=== PATIENT | male | born 1930 | race Caucasian/White ===

== ENCOUNTER 2016-08-21 19:52 | Emergency (ER) | payer MEDICARE, OTHER ==
--- NOTE | 2016-08-21 20:26 | ERPHSYRPT ---
- History of Present Illness Time Seen by Provider: 08/21/16 20:08 Source: patient, family () Exam Limitations: no limitations Patient Subjective Stated Complaint: Pt sts weakness since July, sts worse today. Sts that he felt good when he got up but then was using walker and passed out while ambulating. Pt sts he was "out". Pt sts increased weakness today. Sts shortness of breath, sts normal for him. Triage Nursing Assessment: Pt alert, oriented, answers questions appropriately. Skin p/w/d, resps non-labored, spo2 95% room air. Pt transferred self with assist x 1 to bed. Unsteady gait noted. Physician History: SINCE LAST MONTH PT HAS HAD SHORTNESS OF AIR AND GENERALIZED WEAKNESS, WORSE TODAY FOR THE PAST 5 HOURS; DENIES CHEST PAIN, ABDOMINAL PAIN, NAUSEA, VOMITING , FEVER; ADMITS TO A NON-PRODUCTIVE COUGH TODAY. Allergies/Adverse Reactions: codeine Allergy (Mild, Verified 08/21/16 20:15) Latex, Natural Rubber Allergy (Verified 08/21/16 20:15) Home Medications: Hydralazine HCl 50 mg PO BID 01/01/13 [History] Losartan Potassium 50 mg [Cozaar 50 MG] 25 mg PO BID 01/01/13 [History] Metoprolol Tartrate 50 mg [Lopressor 50 MG] 25 mg PO BID 01/01/13 [History ] PANTOPRAZOLE 40 mg Tablet [Protonix 40MG Tablet] 40 mg PO BID 01/01/13 [ History] Potassium Chloride 20 Meq Tab [Potassium Chloride 20 MEQ TABLET] 2 tablet PO DAILY 01/01/13 [History] Sertraline HCl 100 mg [Zoloft 100 MG] 100 mg PO HS 01/01/13 [History] Simvastatin 40 mg [Zocor 40 mg] 40 mg PO DINNER 01/01/13 [History] Furosemide [Lasix] 80 mg PO DAILY 12/30/13 [History] Levothyroxine Sodium 100 Mcg [Synthroid 100 Mcg] 175 mcg PO DAILY 06/07/15 [History] Warfarin Sodium 4 mg PO DAILY 08/21/16 [History] Hx Tetanus, Diphtheria Vaccination/Date Given: Yes (within 10 yrs) Hx Influenza Vaccination/Date Given: Yes Hx Pneumococcal Vaccination/Date Given: Yes Immunizations Up to Date: Yes - Review of Systems Constitutional: Weakness (GENERALIZED) Ears, Nose, & Throat: Other (H.O.H.) Respiratory: Cough, Dyspnea Cardiac: No Chest Pain Abdominal/Gastrointestinal: No Abdominal Pain, No Vomiting, No Diarrhea Genitourinary Symptoms: Other (CKD(PER )) Musculoskeletal: Other (BILATERAL LOWER LEG EDEMA) Neurological: No Headache All Other Systems: Reviewed and Negative - Past Medical History Pertinent Past Medical History: Yes Neurological History: No Pertinent History ENT History: No Pertinent History Cardiac History: Congenital Heart Disease, Congestive Heart Failure, Coronary Artery Disease, High Cholesterol, Hypertension, Myocardial Infarction ([place]) Respiratory History: COPD Endocrine Medical History: Hypothyroidism Musculoskeletal History: No Pertinent History GI Medical History: No Pertinent History History: No Pertinent History Psycho-Social History: No Pertinent History Male Reproductive Disorders: Prostate Problems Other Medical History: ulcers on lower left leg, which had been treated at [facility], but now dr esteban is taking care of ulcers. .Pt also has had radiation tx's for skin cancer on end of nose and ear having biopsy 04/11/13 - Past Surgical History Past Surgical History: Yes Neuro Surgical History: No Pertinent History Cardiac: CABG, Cardiac Catheterization, Valve Replacement, Other Respiratory: No Pertinent History Gastrointestinal: Cholecystectomy Genitourinary: No Pertinent History Musculoskeletal: No Pertinent History Male Surgical History: No Pertinent History Other Surgical History: ARTIFICIAL HEART VALVE AND A FILTER IN THE AORTA; partial thyroidectomy (left side) - Social History Smoking Status: Never smoker Exposure to second hand smoke: No Alcohol Use: None Drug Use: none Patient Lives Alone: No Significant Family History: no pertinent family hx - Nursing Vital Signs Nursing Vital Signs: Initial Vital Signs Temperature 98.1 F Temperature Source Oral Pulse Rate 84 Respiratory Rate 18 Blood Pressure [] 174/76 - Physical Exam General Appearance: alert Eye Exam: PERRL/EOMI Ears, Nose, Throat Exam: TMs normal, dry mucous membranes, pharyngeal erythema Neck Exam: normal inspection Respiratory Exam: lungs clear, airway intact Cardiovascular Exam: irregular, other (PROSTHETIC HEART VALVE SOUNDS.) Gastrointestinal/Abdomen Exam: soft, normal bowel sounds Back Exam: normal range of motion Extremity Exam: other (+2 EDEMA OF LEGS) Neurologic Exam: alert, cooperative Skin Exam: other (STASIS DERMATITIS OF BOTH LEGS) SpO2 Interpretation: normal SpO2: 95 Oxygen Delivery: Room Air - Course Nursing assessment & vital signs reviewed: Yes EKG Interpreted by Me: RATE (80), A-fib, NORMAL AXIS, Non-specific ST Changes - Radiology Exams Chest X-ray Interpretation: Interpreted by me, No Pneumonia Ordered Tests: Active Orders 24 hr Category Date Time Status Clean Catch Urine Specimen STAT Care 08/21/16 20:19 Active EKG-ER Only STAT Care 08/21/16 20:19 Active IV Insertion STAT Care 08/21/16 20:19 Active CHEST 1 VIEW (PORTABLE) Stat Exams 08/21/16 20:19 Taken AMYLASE Stat Lab 08/21/16 20:34 Completed CBC W DIFF Stat Lab 08/21/16 20:34 Completed CMP Stat Lab 08/21/16 20:34 Completed CULTURE, THROAT Stat Lab 08/21/16 20:34 Received LIPASE Stat Lab 08/21/16 20:34 Completed [place] Screen Stat Lab 08/21/16 20:34 Completed NT PRO BNP Stat Lab 08/21/16 20:34 Completed STREP SCREEN-BETA A Stat Lab 08/21/16 20:34 Completed T4 Stat Lab 08/21/16 20:34 Completed TROPONIN Stat Lab 08/21/16 20:34 Completed TSH [TSH, 3RD Generation] Stat Lab 08/21/16 20:34 Completed UA W/ MICROSCOPIC Stat Lab 08/21/16 20:19 Completed Medication Summary Generic Name Dose Route Start Last Admin Trade Name Freq PRN Reason Stop Dose Admin Sodium Chloride 1,000 mls @ 100 mls/hr 08/21/16 20:30 08/21/16 20:37 Sodium Chloride 0.9% 1000 Ml IV 09/20/16 20:29 100 mls/hr .Q10H JIMMIE Administration Lab/Rad Data: Laboratory Result Diagrams 08/21/16 20:34 08/21/16 20:34 Laboratory Results 08/21/16 08/21/16 08/21/16 Range/Units 20:34 20:34 20:34 WBC (4.0-10.5) K/mm3 RBC (4.1-5.6) M/mm3 Hgb (12.5-18.0) gm/dl Hct (42-50) % MCV (78-100) fl MCH (26-32) pg MCHC (32-36) g/dl RDW (11.5-14.0) % Plt Count (150-450) K/mm3 MPV (6-9.5) fl Gran % (36.0-66.0) % Lymphocytes % (24.0-44.0) % Monocytes % (0.0-12.0) % Eosinophils % (0.00-5.0) % Basophils % (0.0-0.4) % Basophils # (0-0.4) Sodium (136-145) mEq/L Potassium (3.5-5.1) mEq/L Chloride (98-107) mEq/L Carbon Dioxide (21-32) mEq/L Anion Gap (5-15) MEQ/L BUN (9-20) mg/dL Creatinine (0.55-1.30) mg/dl Estimated GFR ML/MIN Glucose (70-110) MG/DL Calcium (8.5-10.1) mg/dL Total Bilirubin (0.2-1.0) mg/dL AST (15-37) U/L ALT (12-78) U/L Alkaline Phosphatase (46-116) U/L Troponin I (0.000-0.056) ng/ml NT-Pro-B Natriuret Pep (0-450) pg/ml Serum Total Protein (6.4-8.2) gm/dL Albumin (3.4-5.0) g/dL Amylase (25-115) U/L Lipase (73-393) U/L Thyroxine (T4) 7.5 (4.7-13.3) UG/DL TSH 3rd Generation 0.088 L (0.358-3.740) mIU/L Ur Collection Type Urine Color (YELLOW) Urine Appearance (CLEAR) Urine pH (5-6) Ur Specific [place] (1.005-1.025) Urine Protein (Negative) Urine Glucose (UA) (NEGATIVE) mg/dL Urine Ketones (NEGATIVE) Urine Nitrite (NEGATIVE) Urine Bilirubin (NEGATIVE) Urine Urobilinogen (0-1) mg/dL Urine WBC (Auto) (NEGATIVE) Urine RBC (Auto) (0-5) Leopoldo/ul Urine Microscopic RBC (0-2) /HPF Urine Bacteria (NEGATIVE) /HPF Monoscreen POSITIVE (Negative) Influenza Type A Ag NEGATIVE (NEGATIVE) Influenza Type B Ag NEGATIVE (NEGATIVE) RSV (PCR) NEGATIVE (Negative) Streptococcus Screen (Negative) Specimen Received 08/21/16 08/21/16 08/21/16 Range/Units 20:34 20:34 20:34 WBC (4.0-10.5) K/mm3 RBC (4.1-5.6) M/mm3 Hgb (12.5-18.0) gm/dl Hct (42-50) % MCV (78-100) fl MCH (26-32) pg MCHC (32-36) g/dl RDW (11.5-14.0) % Plt Count (150-450) K/mm3 MPV (6-9.5) fl Gran % (36.0-66.0) % Lymphocytes % (24.0-44.0) % Monocytes % (0.0-12.0) % Eosinophils % (0.00-5.0) % Basophils % (0.0-0.4) % Basophils # (0-0.4) Sodium 142 (136-145) mEq/L Potassium 4.3 (3.5-5.1) mEq/L Chloride 107 (98-107) mEq/L Carbon Dioxide 23.6 (21-32) mEq/L Anion Gap 15.8 H (5-15) MEQ/L BUN 32 H (9-20) mg/dL Creatinine 1.73 H (0.55-1.30) mg/dl Estimated GFR 40 ML/MIN Glucose 140 H (70-110) MG/DL Calcium 9.0 (8.5-10.1) mg/dL Total Bilirubin 1.1 H (0.2-1.0) mg/dL AST 26 (15-37) U/L ALT 21 (12-78) U/L Alkaline Phosphatase 73 (46-116) U/L Troponin I 0.019 (0.000-0.056) ng/ml NT-Pro-B Natriuret Pep 4687 H (0-450) pg/ml Serum Total Protein 7.4 (6.4-8.2) gm/dL Albumin 3.9 (3.4-5.0) g/dL Amylase 63 (25-115) U/L Lipase 132 (73-393) U/L Thyroxine (T4) (4.7-13.3) UG/DL TSH 3rd Generation (0.358-3.740) mIU/L Ur Collection Type Urine Color (YELLOW) Urine Appearance (CLEAR) Urine pH (5-6) Ur Specific [place] (1.005-1.025) Urine Protein (Negative) Urine Glucose (UA) (NEGATIVE) mg/dL Urine Ketones (NEGATIVE) Urine Nitrite (NEGATIVE) Urine Bilirubin (NEGATIVE) Urine Urobilinogen (0-1) mg/dL Urine WBC (Auto) (NEGATIVE) Urine RBC (Auto) (0-5) Leopoldo/ul Urine Microscopic RBC (0-2) /HPF Urine Bacteria (NEGATIVE) /HPF Monoscreen (Negative) Influenza Type A Ag (NEGATIVE) Influenza Type B Ag (NEGATIVE) RSV (PCR) (Negative) Streptococcus Screen NEGATIVE (Negative) Specimen Received 08/21/16 08/21/16 Range/Units 20:34 20:19 WBC 9.7 (4.0-10.5) K/mm3 RBC 3.99 L (4.1-5.6) M/mm3 Hgb 12.1 L (12.5-18.0) gm/dl Hct 37.1 L (42-50) % MCV 93.0 (78-100) fl MCH 30.3 (26-32) pg MCHC 32.6 (32-36) g/dl RDW 14.7 H (11.5-14.0) % Plt Count 134 L (150-450) K/mm3 MPV 10.5 H (6-9.5) fl Gran % 81.8 H (36.0-66.0) % Lymphocytes % 7.3 L (24.0-44.0) % Monocytes % 9.9 (0.0-12.0) % Eosinophils % 0.7 (0.00-5.0) % Basophils % 0.3 (0.0-0.4) % Basophils # 0.03 (0-0.4) Sodium (136-145) mEq/L Potassium (3.5-5.1) mEq/L Chloride (98-107) mEq/L Carbon Dioxide (21-32) mEq/L Anion Gap (5-15) MEQ/L BUN (9-20) mg/dL Creatinine (0.55-1.30) mg/dl Estimated GFR ML/MIN Glucose (70-110) MG/DL Calcium (8.5-10.1) mg/dL Total Bilirubin (0.2-1.0) mg/dL AST (15-37) U/L ALT (12-78) U/L Alkaline Phosphatase (46-116) U/L Troponin I (0.000-0.056) ng/ml NT-Pro-B Natriuret Pep (0-450) pg/ml Serum Total Protein (6.4-8.2) gm/dL Albumin (3.4-5.0) g/dL Amylase (25-115) U/L Lipase (73-393) U/L Thyroxine (T4) (4.7-13.3) UG/DL TSH 3rd Generation (0.358-3.740) mIU/L Ur Collection Type CLEAN CATCH Urine Color YELLOW (YELLOW) Urine Appearance CLEAR (CLEAR) Urine pH 7.5 (5-6) Ur Specific [place] 1.015 (1.005-1.025) Urine Protein 100 (Negative) Urine Glucose (UA) NEGATIVE (NEGATIVE) mg/dL Urine Ketones NEGATIVE (NEGATIVE) Urine Nitrite NEGATIVE (NEGATIVE) Urine Bilirubin NEGATIVE (NEGATIVE) Urine Urobilinogen 0.2 (0-1) mg/dL Urine WBC (Auto) NEGATIVE (NEGATIVE) Urine RBC (Auto) TRACE-LYSED (0-5) Leopoldo/ul Urine Microscopic RBC 0-2 (0-2) /HPF Urine Bacteria RARE (NEGATIVE) /HPF Monoscreen (Negative) Influenza Type A Ag (NEGATIVE) Influenza Type B Ag (NEGATIVE) RSV (PCR) (Negative) Streptococcus Screen (Negative) Specimen Received [id number] - Departure Time of Disposition: 23:08 Departure Disposition: Home Clinical Impression: INFECTIOUS MONONUCLEOSIS, A.FIB, COPD, HYPOTHYROIDISM, CAD, HTN, PHARYNGITIS, CKD Condition: Fair Critical Care Time: No Referrals: JCARLOS SAEED [Primary Care Provider] - Instructions: Mononucleosis Additional Instructions: FOLLOW UP WITH PRIVATE DOCTOR TOMORROW. Prescriptions: Azithromycin 250 mg [Zithromax 250 MG TABLET] 250 mg PO ZPACK #6 tablet
[2016-08-21] MEDS ORDERED: Sodium Chloride 0.9% 1000 ML 1,000 ML IV SCH (20:30)
[2016-08-21] MEDS ORDERED: Sodium Chloride 0.9% 1000 ML 1,000 ML ONE (20:36)
[2016-08-21 20:38] LABS: BASOPHIL % 0.3 % (0.0-0.4); Eosinophil % 0.7 % (0.00-5.0); Granulocytes % 81.8 % (36.0-66.0); Lymphocytes % 7.3 % (24.0-44.0); Mean Corpuscular Hemoglobin 30.3 pg (26-32); Mean Platelet Volume 10.5 fl (6-9.5); Monocytes % 9.9 % (0.0-12.0); Platelet Count 134 K/mm3 (150-450); Red Blood Count 3.99 M/mm3 (4.1-5.6); Red Cell Distribution Width 14.7 % (11.5-14.0); White Blood Count 9.7 K/mm3 (4.0-10.5)
[2016-08-21 21:23] LABS: ALBUMIN 3.9 g/dL (3.4-5.0); ANION GAP 15.8 MEQ/L (5-15); BILIRUBIN,TOTAL 1.1 mg/dL (0.2-1.0); Carbon Dioxide 23.6 mEq/L (21-32); Potassium 4.3 mEq/L (3.5-5.1); TROPONIN 0.019 ng/ml (0.000-0.056); Total Protein 7.4 gm/dL (6.4-8.2)
[2016-08-21 22:51] LABS: Collection Type CLEAN CATCH; Ph 7.5 (5-6)
[2016-08-21 22:52] LABS: Bacteria RARE /HPF (NEGATIVE); COMPLETE URINE MICROSCOPIC? YES
[2016-08-21] MEDS ORDERED: Zithromax 250 MG TABLET PO ONE (23:08)
[2016-08-21] MEDS ORDERED: Zithromax 250 MG TABLET ONE (23:18)
[2016-08-21 23:19] LABS: INR 2.14 (0.8-3.0); PROTIME 23.4 SECONDS (8.83-12.87)
[2016-08-21 23:21] LABS: PTT 33.5 SECONDS (24.1-36.1)
[2016-08-22 00:51] VITALS: BP 160/76; PULSE 73; O2SAT 100
--- NOTE | 2016-08-22 08:54 | XRAY ---
Indication: Short of breath. Weakness. Comparison: March 28, 2016. Portable chest again demonstrates left hemidiaphragm elevation with adjacent infiltrate/atelectasis and subtle right base atelectasis/scarring. Upper lungs clear. Heart is borderline enlarged for AP portable technique and again demonstrates previous CABG surgery. Bony thorax intact again with osteopenia and degenerative changes. Impression: Stable nonacute chest with chronic features.
== END 2016-08-22 00:51 | disposition home or self-care (01) ==
LOC: ED 19:52
DX: B27.90 Infectious mononucleosis, unspecified without complication (principal); I48.91 Unspecified atrial fibrillation; J44.9 Chronic obstructive pulmonary disease, unspecified; E03.9 Hypothyroidism, unspecified; I25.10 Atherosclerotic heart disease of native coronary artery without angina pectoris; I10 Essential (primary) hypertension; J02.9 Acute pharyngitis, unspecified; N18.9 Chronic kidney disease, unspecified; R60.9 Edema, unspecified; R06.00 Dyspnea, unspecified; Z79.899 Other long term (current) drug therapy; Z79.01 Long term (current) use of anticoagulants
CPT/HCPCS: 36000; 36415; 71010; 80053; 81000; 82150; 83690; 83880; 84436; 84443; 84484; 85025; 85610; 85730; 86308; 87070; 87430; 87631; 93005; 96360; 96361; 99284; A9270-GY

== ENCOUNTER 2017-02-13 12:09 | Observation (INO) | payer MEDICARE, OTHER ==
[2017-02-13] MEDS ORDERED: Lasix 40 MG/4 ML IV ONE (12:58)
--- NOTE | 2017-02-13 12:58 | ERPHSYRPT ---
- History of Present Illness Time Seen by Provider: 02/13/17 12:50 Source: patient Exam Limitations: no limitations Patient Subjective Stated Complaint: TP to er c/o increasing difficulty breathing x 3 days with mild chest tightness over midchest. pt states he has been coughing up thick clear sputum Triage Nursing Assessment: pt c/o sob, arrives with nonlabored breathing reg rate and rhy. pt BBS CTA other than rll with exp wheezing noted. pt reports constant chest tightness to midsternum worse with inspiration. pt pale, w/d resp easy a@ox3. PT WAS TAKEN OFF LASIX AND K LAST WEEK PER MD Physician History: The patient is an 86-year-old male complaining of worsening shortness of breath and cough for 2-3 days. He is also week. He is coughing up thick clear sputum. He states his chest is tight. He had been taking Lasix but was taken off of the Lasix about a month ago. He denies fever or chills. His past medical history is significant for CHF, CAD, CABG, AVR, chronic stasis dermatitis, high cholesterol, hypertension, and atrial fibrillation. Timing/Duration: day(s) (3), gradual onset, worse Activities at Onset: none Severity of Dyspnea-Max: moderate Severity of Dyspnea-Current: moderate Possible Cause: occasional episodes Modifying Factors: Improves With: exertion, lying down (pt must sleep in a recliner.) Associated Symptoms: edema, wheezing, ankle swelling, productive cough Allergies/Adverse Reactions: codeine Allergy (Mild, Verified 08/21/16 20:15) Latex, Natural Rubber Allergy (Verified 08/21/16 20:15) Home Medications: Hydralazine HCl 50 mg PO BID 01/01/13 [History] Losartan Potassium 50 mg [Cozaar 50 MG] 25 mg PO BID 01/01/13 [History] Metoprolol Tartrate 50 mg [Lopressor 50 MG] 25 mg PO BID 01/01/13 [History ] PANTOPRAZOLE 40 mg Tablet [Protonix 40MG Tablet] 40 mg PO BID 01/01/13 [ History] Sertraline HCl 100 mg [Zoloft 100 MG] 100 mg PO HS 01/01/13 [History] Simvastatin 40 mg [Zocor 40 mg] 20 mg PO DINNER 01/01/13 [History] Levothyroxine Sodium 100 Mcg [Synthroid 100 Mcg] 175 mcg PO DAILY 06/07/15 [History] Warfarin Sodium 4 mg PO DAILY 08/21/16 [History] Warfarin Sodium 5 mg [Coumadin 5 MG] 5 mg PO DAILY 02/13/17 [History] Hx Tetanus, Diphtheria Vaccination/Date Given: No Hx Influenza Vaccination/Date Given: Yes Hx Pneumococcal Vaccination/Date Given: No - Review of Systems Constitutional: Weakness Eyes: No Symptoms Ears, Nose, & Throat: No Symptoms Respiratory: Cough, Dyspnea Cardiac: Chest Pain (tightness) Abdominal/Gastrointestinal: No Abdominal Pain, No Nausea, No Vomiting, No Diarrhea Genitourinary Symptoms: No Dysuria Musculoskeletal: No Back Pain, No Neck Pain Skin: No Rash Neurological: No Dizziness, No Focal Weakness, No Sensory Changes Psychological: No Symptoms Endocrine: No Symptoms Hematologic/Lymphatic: No Symptoms Immunological/Allergic: No Symptoms All Other Systems: Reviewed and Negative - Past Medical History Pertinent Past Medical History: Yes Neurological History: No Pertinent History ENT History: No Pertinent History Cardiac History: Congenital Heart Disease, Congestive Heart Failure, Coronary Artery Disease, High Cholesterol, Hypertension, Myocardial Infarction ([place]) Respiratory History: COPD Endocrine Medical History: Hypothyroidism Musculoskeletal History: No Pertinent History GI Medical History: No Pertinent History History: No Pertinent History Psycho-Social History: No Pertinent History Male Reproductive Disorders: Prostate Problems Other Medical History: ulcers on lower left leg, which had been treated [facility], but now dr esteban is taking care of ulcers. .Pt also has had radiation tx's for skin cancer on end of nose and ear having biopsy 04/11/13 - Past Surgical History Past Surgical History: Yes Neuro Surgical History: No Pertinent History Cardiac: CABG, Cardiac Catheterization, Valve Replacement, Other Respiratory: No Pertinent History Gastrointestinal: Cholecystectomy Genitourinary: No Pertinent History Musculoskeletal: No Pertinent History Male Surgical History: No Pertinent History Other Surgical History: ARTIFICIAL HEART VALVE AND A FILTER IN THE AORTA; partial thyroidectomy (left side) - Social History Smoking Status: Never smoker Exposure to second hand smoke: No Alcohol Use: None Drug Use: none Patient Lives Alone: No Significant Family History: no pertinent family hx - Nursing Vital Signs Nursing Vital Signs: Initial Vital Signs Temperature 98.7 F 02/13/17 12:10 Pulse Rate 100 H 10/03/17 12:10 Respiratory Rate 18 02/13/17 12:10 O2 Sat by Pulse Oximetry 95 02/13/17 12:10 Pain Scale Pain Intensity 0 - Physical Exam General Appearance: mild distress Eye Exam: PERRL/EOMI Ears, Nose, Throat Exam: hearing grossly normal Neck Exam: normal inspection, supple Respiratory Exam: diminished breath sounds Cardiovascular/Chest Exam: murmur, irregular Abdominal/Gastrointestinal Exam: soft, No tenderness, No distention, No mass Rectal Exam: not done Extremity Exam: non-tender, normal range of motion, normal inspection, no calf tenderness, no pedal edema Neurologic Exam: alert, oriented x 3, cooperative, concession cashier II-XII nml as tested, sensation nml, No motor deficits Skin Exam: normal color, warm, No dry SpO2 Interpretation: normal SpO2: 95 Oxygen Delivery: Room Air - Course EKG Interpreted by Me: RATE (86), A-fib, NORMAL AXIS, NORMAL QRS, NORMAL ST-T, Other (No change compared to EKG 08/21/16.) - Radiology Exams Chest X-ray Interpretation: Teleradiologist Report, Other (cardiomegaly with pulmonary edema c/w CHF per Dr Hargrove.) Ordered Tests: Active Orders 24 hr Category Date Time Status Gear Changer STAT Care 02/13/17 12:59 Active EKG-ER Only STAT Care 02/13/17 12:58 Active IV Insertion STAT Care 02/13/17 12:58 Active Oxygen-ED Only NASAL CANNULA 2 lpm Care 02/13/17 12:58 Active CHEST 2 VIEWS (PA AND LAT) Stat Exams 02/13/17 12:59 Completed BLOOD CULTURE Stat Lab 02/13/17 13:50 Received CBC W DIFF Stat Lab 02/13/17 12:35 Completed CMP Stat Lab 02/13/17 12:35 Completed Lactic Acid Stat Lab 02/13/17 13:55 Completed NT PRO BNP Stat Lab 02/13/17 12:35 Completed PROTIME WITH INR Stat Lab 02/13/17 12:35 Completed Medication Summary Discontinued Medications Generic Name Dose Route Start Last Admin Trade Name Freq PRN Reason Stop Dose Admin Furosemide 40 mg 02/13/17 12:58 02/13/17 13:14 Lasix 40 Mg/4 Ml IV 02/13/17 12:59 40 mg STAT ONE Administration Furosemide Confirm 02/13/17 13:03 Lasix 40 Mg/4 Ml Administered 02/13/17 13:04 Dose 40 mg .ROUTE .STK-MED ONE Lab/Rad Data: Laboratory Result Diagrams 02/13/17 12:35 02/13/17 12:35 Laboratory Results 02/13/17 02/13/17 02/13/17 Range/Units 13:55 12:35 12:35 WBC (4.0-10.5) K/mm3 RBC (4.1-5.6) M/mm3 Hgb (12.5-18.0) gm/dl Hct (42-50) % MCV (78-100) fl MCH (26-32) pg MCHC (32-36) g/dl RDW (11.5-14.0) % Plt Count (150-450) K/mm3 MPV (6-9.5) fl Gran % (36.0-66.0) % Lymphocytes % (24.0-44.0) % Monocytes % (0.0-12.0) % Eosinophils % (0.00-5.0) % Basophils % (0.0-0.4) % Basophils # (0-0.4) INR 3.21 H (0.8-3.0) Sodium 141 (136-145) mEq/L Potassium 3.5 (3.5-5.1) mEq/L Chloride 107 (98-107) mEq/L Carbon Dioxide 22.8 (21-32) mEq/L Anion Gap 14.4 (5-15) MEQ/L BUN 29 H (9-20) mg/dL Creatinine 1.59 H (0.55-1.30) mg/dl Estimated GFR 44 ML/MIN Glucose 95 (70-110) MG/DL Lactic Acid 1.2 (0.4-2.0) Calcium 8.9 (8.5-10.1) mg/dL Total Bilirubin 1.40 H (0.2-1.0) mg/dL AST 19 (15-37) U/L ALT 20 (12-78) U/L Alkaline Phosphatase 60 (46-116) U/L NT-Pro-B Natriuret Pep 6684 H (0-450) pg/ml Serum Total Protein 6.8 (6.4-8.2) gm/dL Albumin 3.4 (3.4-5.0) g/dL 02/13/17 Range/Units 12:35 WBC 8.9 (4.0-10.5) K/mm3 RBC 3.56 L (4.1-5.6) M/mm3 Hgb 11.0 L (12.5-18.0) gm/dl Hct 33.1 L (42-50) % MCV 93.0 (78-100) fl MCH 30.8 (26-32) pg MCHC 33.2 (32-36) g/dl RDW 14.0 (11.5-14.0) % Plt Count 133 L (150-450) K/mm3 MPV 11.2 H (6-9.5) fl Gran % 77.3 H (36.0-66.0) % Lymphocytes % 7.3 L (24.0-44.0) % Monocytes % 11.4 (0.0-12.0) % Eosinophils % 3.6 (0.00-5.0) % Basophils % 0.4 (0.0-0.4) % Basophils # 0.04 (0-0.4) INR (0.8-3.0) Sodium (136-145) mEq/L Potassium (3.5-5.1) mEq/L Chloride (98-107) mEq/L Carbon Dioxide (21-32) mEq/L Anion Gap (5-15) MEQ/L BUN (9-20) mg/dL Creatinine (0.55-1.30) mg/dl Estimated GFR ML/MIN Glucose (70-110) MG/DL Lactic Acid (0.4-2.0) Calcium (8.5-10.1) mg/dL Total Bilirubin (0.2-1.0) mg/dL AST (15-37) U/L ALT (12-78) U/L Alkaline Phosphatase (46-116) U/L NT-Pro-B Natriuret Pep (0-450) pg/ml Serum Total Protein (6.4-8.2) gm/dL Albumin (3.4-5.0) g/dL - Progress Progress: improved Air Movement: good Blood Culture(s) Obtained: No Antibiotics given: No Discussed with : Lorenzo Will see patient in: hospital (observation) Counseled pt/family regarding: lab results, diagnosis, rad results - Departure Time of Disposition: 14:39 Departure Disposition: Observation (Per Dr Lorenzo for Desire Saeed) Clinical Impression: CHF (congestive heart failure) Condition: Stable Critical Care Time: No Referrals: JCARLOS SAEED [Primary Care Provider] - Instructions: Heart Failure Additional Instructions: You have an exacerbation of congestive heart failure that has led to a buildup of fluid in her lungs, causing shortness of breath. You were given Lasix 40 mg by IV in the ER. You are being admitted under Dr. Lorenzo.
[2017-02-13] MEDS ORDERED: Lasix 40 MG/4 ML ONE (13:03)
[2017-02-13 13:28] LABS: BASOPHIL % 0.4 % (0.0-0.4); Eosinophil % 3.6 % (0.00-5.0); Granulocytes % 77.3 % (36.0-66.0); Lymphocytes % 7.3 % (24.0-44.0); Mean Platelet Volume 11.2 fl (6-9.5); Monocytes % 11.4 % (0.0-12.0); Platelet Count 133 K/mm3 (150-450); Red Blood Count 3.56 M/mm3 (4.1-5.6); White Blood Count 8.9 K/mm3 (4.0-10.5)
[2017-02-13 13:32] LABS: Mean Corpuscular Hemoglobin 30.8 pg (26-32)
[2017-02-13 13:44] LABS: INR 3.21 (0.8-3.0); PROTIME 36.1 SECONDS (8.83-12.87)
--- NOTE | 2017-02-13 13:45 | XRAY ---
Indication: Short of breath. Comparison: August 21, 2016. AP/lateral chest demonstrates worsening cardiomegaly with now pulmonary edema and small bibasilar effusions favoring cardiac decompensation. Again previous cardiac valvular replacement surgery, osteopenia, and bony degenerative changes. Impression: New findings favoring CHF. Superimposed pneumonia not completely excluded.
[2017-02-13 14:01] LABS: ALBUMIN 3.4 g/dL (3.4-5.0); ANION GAP 14.4 MEQ/L (5-15); BILIRUBIN,TOTAL 1.4 mg/dL (0.2-1.0); Carbon Dioxide 22.8 mEq/L (21-32); Potassium 3.5 mEq/L (3.5-5.1); Total Protein 6.8 gm/dL (6.4-8.2)
[2017-02-13] MEDS: Lasix 40 MG/4 ML IV SCH (16:46)
[2017-02-13] MEDS ORDERED: TYLENOL 325 MG PO PRN (17:25)
[2017-02-13] MEDS ORDERED: Sodium Chloride 0.9% 10 ML FLUSH Syringe IV PRN (17:42)
[2017-02-13] MEDS: Apresoline 25 MG TABLET PO SCH ×2 (19:37→22:05)
[2017-02-13] MEDS: Cozaar 50 MG PO SCH (21:48)
[2017-02-13] MEDS: ZOCOR 20MG PO SCH (21:50)
[2017-02-13] MEDS: Sodium Chloride 0.9% 10 ML FLUSH Syringe IV SCH (21:50)
[2017-02-13] MEDS: ZOLOFT 50 MG TABLET PO SCH (21:51)
[2017-02-13] MEDS ORDERED: Lopressor 50 MG PO SCH (22:00)
[2017-02-14 05:53] LABS: Mean Cell Volume 92.5 fl (78-100); Platelet Count 141 K/mm3 (150-450); Red Blood Count 3.59 M/mm3 (4.1-5.6); White Blood Count 9.4 K/mm3 (4.0-10.5)
[2017-02-14 05:57] LABS: INR 3.09 (0.8-3.0); PROTIME 34.8 SECONDS (8.83-12.87)
[2017-02-14] MEDS: Sodium Chloride 0.9% 10 ML FLUSH Syringe IV SCH ×3 (06:00→21:53)
[2017-02-14 06:19] LABS: ANION GAP 13.1 MEQ/L (5-15); Carbon Dioxide 25.5 mEq/L (21-32); Potassium 3.3 mEq/L (3.5-5.1)
--- NOTE | 2017-02-14 07:40 | HP ---
HISTORY OF PRESENT ILLNESS: This is an 86 year-old patient of Dr. Chino Beltran who presented to the emergency department with increasing trouble with breathing. He states his breathing got worse the past few days that has been going on for some time. He recently had been off of his Lasix and potassium due to chronic kidney disease. He had good urine output with the Lasix in the emergency room and reports that he soaked the bed x2 and breathing is better now than when he first came in. He reports that he had a catheter in place now. He also reports a history of passing out yesterday. He did not fall except against his and did not hit his head. He reports this happened and that his tafe teacher, Dr. Babcock, is aware of this. REVIEW OF SYSTEMS: He denies any fever. He has a nonproductive cough. No pain. He has had some lower extremity edema. No rashes. He denies any chest pain. He just states that it was hard to breathe. He reports some leg ulcers that have gotten better recently. PAST MEDICAL HISTORY: Chronic kidney disease stage IV, history of a valve replacement, congestive heart failure, obstructive sleep apnea for which he wears a CPAP at night for. 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 MEDICATIONS: ALLERGIES: SOCIAL HISTORY: He is and denies any tobacco use alcohol use. FAMILY HISTORY: His mother is and had a stroke. His father is and had chronic obstructive pulmonary disease. PHYSICAL EXAMINATION: VITAL SIGNS: Temperature current 98.7F, temperature max 98.7F, heart rate 84 to 100 currently 84, respiratory rate 18 to 20 currently 18, blood pressure currently 177 over 78. Oxygen saturation 98% on 2 liters. GENERAL: The patient is lying in bed eating his breakfast, a pleasant talkative man with his at the bedside in no acute distress. CVS: He has a regular rate and rhythm. No murmurs, gallops or rubs are appreciated. CHEST: Clear to auscultation when auscultated anteriorly. ABDOMEN: Soft, nontender, nondistended with normal bowel sounds. EXTREMITIES: No clubbing, cyanosis or edema. SKIN: Warm, dry and intact. LABORATORY DATA AND TESTS: On admission hemoglobin 11.0, PLT count 133,000. International normalized ratio 3.21. Creatinine 1.59, bilirubin 1.4. BNP 6,684. Influenza A/B and respiratory syncytial virus were negative. Chest x-ray was read as new findings favoring congestive heart failure superimposed pneumonia not completely excluded. His white blood cell count was normal. ASSESSMENT AND PLAN: 1) CONGESTIVE HEART FAILURE EXACERBATION: The patient was started on Lasix 40 mg IV and had good diuresis with this, will plan to recheck BMP in the morning, continue with daily weights, accurate ins and outs. 2) CHRONIC KIDNEY DISEASE STAGE IV: Continue with close monitoring. 3) HISTORY OF SYNCOPE: He is currently on telemetry. Will try to obtain records from his tafe teacher, Dr. Babcock, and his primary care doctor tomorrow may know if this has already been worked up in the past. 4) [facility] ANTICOAGULATION: Will check an international normalized ratio again tomorrow and hold his Coumadin this morning as his international normalized ratio is 3.2. The patient reports his goal is 2 to 3. Will restart his home doses of Coumadin tomorrow. 5) HYPERTENSION: His blood pressure is high here. He will restart his home medications and give his first dose of Hydralazine now.
--- NOTE | 2017-02-14 07:58 | PCM.NOTE ---
Date and Time: 02/14/17746 Subjective Assessment: he is feeling better today still using the oxygen had good urine output no chest pain no abdominal pain or nausea has not been up on his own yet Objective Exam General Appearance: no apparent distress Neurologic Exam: alert, oriented x 3, cooperative Skin Exam: warm, dry Ears, Nose, Throat Exam: moist mucous membranes Neck Exam: non-tender, supple Respiratory Exam: crackles/rales Cardiovascular Exam: murmur, irregular Gastrointestinal/Abdomen Exam: soft, normal bowel sounds, No tenderness Extremity Exam: other (trace shelby LE edema and bilateral large ecchymosis) OBJECTIVE DATA Vital Signs: Vital Signs - 24 hr Temp Pulse Resp BP Pulse Ox 02/14/17 07:21 97.8 F 84 18 133/65 96 02/14/17 07:13 96 02/14/17 04:10 98.3 F 79 22 156/77 94 L 02/14/17 00:10 98.5 F 87 22 144/75 97 02/13/17 20:10 87 22 98 02/13/17 20:00 98.2 F 88 24 135/61 98 02/13/17 16:27 84 18 98 02/13/17 16:17 98.7 F 88 18 207/86 98 02/13/17 15:50 98.7 F 88 18 207/86 98 02/13/17 15:40 98.7 F 88 18 207/86 98 02/13/17 15:15 98.7 F 88 18 207/86 98 02/13/17 14:56 82 20 172/90 99 02/13/17 14:45 95 02/13/17 14:40 80 20 161/78 99 02/13/17 13:55 80 18 164/77 99 02/13/17 13:14 96 H 24 199/91 93 L 02/13/17 12:18 18 95 02/13/17 12:10 98.7 F 100 H 18 95 Oxygen-Last 24 hours O2 Percentage 2 Liters = 28% O2 Percentage 2 Liters = 28% O2 Percentage 2 Liters = 28% O2 Percentage 2 Liters = 28% O2 Percentage 2 Liters = 28% O2 Percentage 2 Liters = 28% O2 Percentage 2 Liters = 28% O2 Percentage 2 Liters = 28% O2 Percentage 2 Liters = 28% O2 Percentage 2 Liters = 28% O2 Percentage 2 Liters = 28% Intake and Output: Intake & Output 02/11/17 02/12/17 02/13/17 02/14/17 11:59 11:59 11:59 11:59 Intake Total 880 Output Total 3450 Balance -2570 Weight 88.904 kg Lab Results: Lab Results-Last 24 Hours 02/14/17 02/14/17 02/14/17 Range/Units 05:22 05:22 05:22 WBC 9.4 (4.0-10.5) K/mm3 RBC 3.59 L (4.1-5.6) M/mm3 Hgb 10.8 L (12.5-18.0) gm/dl Hct 33.2 L (42-50) % MCV 92.5 (78-100) fl MCH 30.0 (26-32) pg MCHC 32.5 (32-36) g/dl RDW 14.0 (11.5-14.0) % Plt Count 141 L (150-450) K/mm3 MPV 11.0 H (6-9.5) fl INR 3.09 H (0.8-3.0) Sodium 140 (136-145) mEq/L Potassium 3.3 L (3.5-5.1) mEq/L Chloride 105 (98-107) mEq/L Carbon Dioxide 25.5 (21-32) mEq/L Anion Gap 13.1 (5-15) MEQ/L BUN 31 H (9-20) mg/dL Creatinine 1.66 H (0.55-1.30) mg/dl Estimated GFR 42 ML/MIN Glucose 104 (70-110) MG/DL Calcium 8.6 (8.5-10.1) mg/dL NT-Pro-B Natriuret Pep 4644 H (0-450) pg/ml Radiology Exams: Radiology Procedures Category Date Time Status CHEST 1 VIEW (PORTABLE) Urgent Exams 02/14/17 06:30 Taken ECHO W/2D AND DOPPLER [US] Routine Exams 02/14/17 Ordered Multi-Disciplinary Progress Notes: Multi-Disciplinary Progress Notes 02/14/17 01:05 Respiratory Note by Lacho Lopez CALLED TO PT RM TO SET UP PT OWNED CPAP. I WAS UNAWARE PT HAD A HM UNIT HERE. I SET PT UP ON HIS UNIT AND FILLED IT W/ WATER. PT STATES HE DOES NOT USE O2 INLINE, PRESSURE IS SET AT 14CM H2O. LEFT NC ON BEDSIDE W/ 2LPM RUNNING FOR PT AND STRESSED HE CALL NURSING TO CONTACT ME FOR ADJUSTMENTS AND OR REMOVAL. Initialized on 02/14/17 01:05 - END OF NOTE Assessment/Plan (1) Acute congestive heart failure Current Visit: Yes Status: Acute Assessment & Plan: echo pending continue lasix diuresis solano for I/O ambulate patient to preserve his mobility hopeful for home in next 1 to 2 days back on his lasix Code(s): I50.9 - HEART FAILURE, UNSPECIFIED (2) Hypertension Current Visit: Yes Status: Acute Qualifiers: Hypertension type: unspecified secondary hypertension Qualified Code(s): I15.9 - Secondary hypertension, unspecified Code(s): I10 - ESSENTIAL (PRIMARY) HYPERTENSION (3) Chronic atrial fibrillation Current Visit: Yes Status: Chronic Code(s): I48.2 - CHRONIC ATRIAL FIBRILLATION (4) Unsteady gait Current Visit: Yes Status: Acute Code(s): R26.81 - UNSTEADINESS ON FEET
[2017-02-14] MEDS ORDERED: Klor Con 10 MEQ PO ONE (08:02)
--- NOTE | 2017-02-14 09:05 | XRAY ---
Indication: Follow-up short of breath. Comparison: One day earlier. Portable chest unchanged again demonstrating cardiomegaly, pulmonary edema, and small bibasilar effusions/atelectasis favoring cardiac decompensation. No new abnormalities.
[2017-02-14] MEDS ORDERED: Coumadin 1 MG PO SCH (10:00)
[2017-02-14] MEDS ORDERED: SYNTHROID 100 MCG PO SCH (10:00)
[2017-02-14] MEDS: Lasix 40 MG/4 ML IV SCH ×2 (10:41→17:35)
[2017-02-14] MEDS: Apresoline 25 MG TABLET PO SCH ×2 (10:41→21:51)
[2017-02-14] MEDS: Lopressor 25MG Tab PO SCH ×2 (10:41→21:52)
[2017-02-14] MEDS: Cozaar 50 MG PO SCH ×2 (10:41→21:51)
[2017-02-14] MEDS: SYNTHROID 100 MCG PO SCH (10:45)
[2017-02-14] MEDS: Klor Con 10 MEQ PO SCH ×3 (10:45→21:52)
[2017-02-14] MEDS: Protonix 40MG Tablet PO SCH (10:57)
[2017-02-14] MEDS: SYNTHROID 75 MCG PO SCH (10:57)
[2017-02-14] MEDS ORDERED: Coumadin 5 MG PO SCH (18:00)
[2017-02-14] MEDS: ZOCOR 20MG PO SCH (21:53)
[2017-02-14] MEDS: ZOLOFT 50 MG TABLET PO SCH (21:53)
[2017-02-15 05:59] LABS: INR 2.31 (0.8-3.0); PROTIME 25.9 SECONDS (8.83-12.87)
[2017-02-15 06:14] LABS: ANION GAP 12.8 MEQ/L (5-15); Carbon Dioxide 27.8 mEq/L (21-32); Potassium 3.6 mEq/L (3.5-5.1)
[2017-02-15] MEDS: Sodium Chloride 0.9% 10 ML FLUSH Syringe IV SCH (07:45)
--- NOTE | 2017-02-15 08:19 | PCM.DCORD ---
- Discharge Discharge Date: 02/15/17 Disposition: Home, Self-Care Condition: Fair Prescriptions: New Furosemide [Lasix] 40 mg PO DAILY #30 tablet Potassium Chloride 8 meq PO BID #60 capsule.er Continue Losartan Potassium 50 mg [Cozaar 50 MG] 25 mg PO BID Hydralazine HCl 50 mg PO BID Metoprolol Tartrate 50 mg [Lopressor 50 MG] 25 mg PO BID PANTOPRAZOLE 40 mg Tablet [Protonix 40MG Tablet] 40 mg PO DAILY Sertraline HCl 100 mg [Zoloft 100 MG] 100 mg PO HS Simvastatin 40 mg [Zocor 40 mg] 20 mg PO DINNER Levothyroxine Sodium 100 Mcg [Synthroid 100 Mcg] 175 mcg PO DAILY Warfarin Sodium 4 mg PO DAILY Warfarin Sodium 5 mg [Coumadin 5 MG] 5 mg PO DAILY Instructions: Heart Failure Additional Instructions: You have an exacerbation of congestive heart failure that has led to a buildup of fluid in her lungs, causing shortness of breath. You were given Lasix 40 mg by IV in the ER. You are being admitted under Dr. Lorenzo. Follow up with: JCARLOS SAEED [Primary Care Provider] -
[2017-02-15] MEDS: Klor Con 10 MEQ PO SCH (09:12)
[2017-02-15] MEDS: SYNTHROID 100 MCG PO SCH (09:12)
[2017-02-15] MEDS: Lopressor 25MG Tab PO SCH (09:13)
[2017-02-15] MEDS: Cozaar 50 MG PO SCH (09:13)
[2017-02-15] MEDS: Apresoline 25 MG TABLET PO SCH (09:13)
[2017-02-15] MEDS: SYNTHROID 75 MCG PO SCH (09:13)
[2017-02-15] MEDS: Protonix 40MG Tablet PO SCH (09:27)
[2017-02-15] MEDS: Lasix 40 MG/4 ML IV SCH (09:28)
--- NOTE | 2017-02-15 11:23 | ECHO ---
Transthoracic echocardiographic examination and color Doppler was done on 02/14/2017. INDICATION: Congestive heart failure. The patient is status post aortic valve replacement, coronary artery bypass graft. IMPRESSION: 1) NO REGIONAL WALL MOTION ABNORMALITY. ESTIMATED GLOBAL LEFT VENTRICULAR EJECTION FRACTION OF AROUND 60%. 2) PROSTHETIC AORTIC VALVE WITH A PEAK TRANSAORTIC GRADIENT OF 35 MM OF MERCURY AND MEAN GRADIENT OF 20. 3) MILD AORTIC REGURGITATION. 4) MILD MITRAL REGURGITATION. 5) MILD TRICUSPID REGURGITATION. RIGHT VENTRICULAR SYSTOLIC PRESSURE OF 41 MM OF MERCURY. 6) LEFT ATRIAL ENLARGEMENT. 7) LEFT VENTRICULAR HYPERTROPHY. 8) MILDLY DILATED RIGHT-SIDED CHAMBERS. The left ventricle is visualized and demonstrated adequate motion of all the segments. Estimated global left ventricular ejection fraction 60%. There is concentric left ventricular hypertrophy. The mitral valve is seen and this opens adequately. It is sclerotic. There is mild mitral regurgitation. Left atrium is enlarged. The aortic valve is prosthetic. The peak gradient across the aortic valve is about 35 mm of Mercury with a mean gradient of 20 mm of Mercury. There is some associated mild aortic regurgitation. The right side chambers are mildly dilated. There is trace tricuspid regurgitation with a right ventricular systolic pressure of 41 mm of Mercury.
[2017-02-15 11:46] VITALS: BP 138/63; PULSE 78; O2SAT 93
--- NOTE | 2017-02-15 17:43 | PCM.DS ---
Discharge Summary Date of Admission: 02/13/17 15:08 Date of Discharge: 02/15/17 Admitting Physician: SANTHOSH RODRIGUES Primary Care Provider: JCARLOS SAEED Allergies Allergies codeine Allergy (Severe, Verified 02/13/17 16:04) Tightness in Chest Latex, Natural Rubber Allergy (Intermediate, Verified 02/13/17 16:03) Skin Irritation Hospital Summary - Hospital Course Hospital Course: Mr. Troncoso suffers from CKD and diastolic heart failure and was having difficulty with dehydration at home and his lasix was tapered to off several weeks ago. He did not notice any increaed swelling but became progressively more short of breath and presented to ED with acute diastolic chf exacerbation with acute respiratory hypoxemic failure that rapidly improved with iv lasix with good diuresis. He had Wang placed for accurate I/O and tolerated well. He continue iv lasix and was breathing much better at time of discharge. He suffers from chronic weakness and gait impairment and was able to walk the halls with nursing staff and felt comfortable with discharge back to home back on his lasix. - Vitals & Intake/Output Vital Signs: Vital Signs Temperature 98.7 F 02/15/17 11:45 Pulse Rate 78 02/15/17 11:45 Respiratory Rate 20 02/15/17 11:45 Blood Pressure 138/63 02/15/17 11:45 O2 Sat by Pulse Oximetry 93 L 02/15/17 15:00 Oxygen-Last Documented O2 Percentage 3 Liters = 32% Intake & Output: Intake & Output 02/13/17 02/14/17 02/15/17 02/16/17 11:59 11:59 11:59 11:59 Intake Total 1000 600 240 Output Total 3450 3850 Balance -2450 -3250 240 Weight 88.904 kg 89.131 kg - Lab Result Diagrams: 02/14/17 05:22 02/15/17 05:20 Lab Results-Last 24 Hrs: Lab Results-Last 24 Hours 02/15/17 02/15/17 Range/Units 05:20 05:20 INR 2.31 (0.8-3.0) Sodium 142 (136-145) mEq/L Potassium 3.6 (3.5-5.1) mEq/L Chloride 105 (98-107) mEq/L Carbon Dioxide 27.8 (21-32) mEq/L Anion Gap 12.8 (5-15) MEQ/L BUN 34 H (9-20) mg/dL Creatinine 1.90 H (0.55-1.30) mg/dl Estimated GFR 36 ML/MIN Glucose 114 H (70-110) MG/DL Calcium 8.5 (8.5-10.1) mg/dL - Radiology Exams Ordered Rad Exams-Entire Visit: Radiology Procedures Category Date Time Status CHEST 1 VIEW (PORTABLE) Urgent Exams 02/14/17 06:30 Completed ECHO W/2D AND DOPPLER [US] Routine Exams 02/14/17 Draft - Procedures and Test Procedures and Tests throughout Hospitalization: Therapy Orders & Screens 02/14/17 01:01 BiPap/CPAP Assessment ROUTINE Comment: 14cm H2O Diagnosis: CHF Discharge Exam General Appearance: no apparent distress, alert Neurologic Exam: alert, oriented x 3, cooperative, normal mood/affect, nml cerebellar function, sensation nml, No nml station & gait Skin Exam: normal color, warm, dry Eye Exam: PERRL, EOMI, eyes nml inspection, No scleral icterus, No pale conjunctivae Ears, Nose, Throat Exam: normal ENT inspection, pharynx normal, dry mucous membranes Neck Exam: normal inspection, non-tender, supple, full range of motion Respiratory Exam: normal breath sounds, lungs clear, No respiratory distress Cardiovascular Exam: regular rate/rhythm, normal heart sounds, murmur Gastrointestinal/Abdomen Exam: soft, No tenderness, No mass Extremity Exam: normal inspection, normal range of motion Back Exam: normal inspection, normal range of motion, No CVA tenderness, No vertebral tenderness Male Genitalia Exam: deferred Rectal Exam: deferred Final Diagnosis/Problem List - Final Discharge Diagnosis/Problem (1) Acute congestive heart failure Status: Acute Assessment & Plan: acute on chronic diastolic (2) Hypertension Status: Acute (3) Chronic atrial fibrillation Status: Chronic (4) Unsteady gait Status: Acute - Discharge Discharge Date: 02/15/17 Disposition: Home, Self-Care Condition: Fair Prescriptions: New Furosemide [Lasix] 40 mg PO DAILY #30 tablet Potassium Chloride 8 meq PO BID #60 capsule.er Continue Losartan Potassium 50 mg [Cozaar 50 MG] 25 mg PO BID Hydralazine HCl 50 mg PO BID Metoprolol Tartrate 50 mg [Lopressor 50 MG] 25 mg PO BID PANTOPRAZOLE 40 mg Tablet [Protonix 40MG Tablet] 40 mg PO DAILY Sertraline HCl 100 mg [Zoloft 100 MG] 100 mg PO HS Simvastatin 40 mg [Zocor 40 mg] 20 mg PO DINNER Levothyroxine Sodium 100 Mcg [Synthroid 100 Mcg] 175 mcg PO DAILY Warfarin Sodium 4 mg PO DAILY Warfarin Sodium 5 mg [Coumadin 5 MG] 5 mg PO DAILY Instructions: Heart Failure, Low-Sodium Diet Follow up with: JCARLOS SAEED [Primary Care Provider] - 02/22/17 1:15 pm Forms: CHF Discharge Instructions
[2017-02-15] MEDS ORDERED: Coumadin 2 MG PO SCH (18:00)
== END 2017-02-15 15:40 | disposition home or self-care (01) ==
LOC: ED 12:09 → MED SURG 15:08
PROVIDERS: ADMIT Internal Medicine; ATTEND Family Medicine
DX: I50.33 Acute on chronic diastolic (congestive) heart failure (principal); N18.4 Chronic kidney disease, stage 4 (severe); I12.9 Hypertensive chronic kidney disease with stage 1 through stage 4 chronic kidney disease, or unspecified chronic kidney disease; I48.2 Chronic atrial fibrillation; Z79.01 Long term (current) use of anticoagulants; R26.81 Unsteadiness on feet; Z79.899 Other long term (current) drug therapy
CPT/HCPCS: 36000; 36415; 71010; 71020; 80048; 80053; 83605; 83880; 85025; 85027; 85610; 87040; 87631; 93005; 93041; 93268; 93306; 94760; 94762; 96374; 99285; G0378; J1940; A9270-GY

== ENCOUNTER 2017-03-26 18:04 | Inpatient (IN) | payer MEDICARE, OTHER ==
--- NOTE | 2017-03-26 18:32 | ERPHSYRPT ---
- History of Present Illness Source: patient, family () Severity: moderate Hx Tetanus, Diphtheria Vaccination/Date Given: No Hx Influenza Vaccination/Date Given: Yes Hx Pneumococcal Vaccination/Date Given: No <EDUARDO ZELAYA - Last Filed: 03/26/17 19:36> <DENI TORO EL - Last Filed: 03/26/17 20:16> - History of Present Illness Time Seen by Provider: 03/26/17 18:18 Physician History: CC: confusion Hx: 86 y/o patient from home. He has increased confusion over a couple of weeks. He has a wound on right leg cared for by Dr Olson. He has fallen recently. He has a bruise on the left hip. He has trouble walking today. No bleeding. He takes coumadin. He had labs thru [facility] today showing WBC 7.3, Hg 11.2 , Plat 166, normal CMP except creat 1.97 which is ok for him. UA was negative. Dr Saeed told to bring him to the hospital. (EDUARDO ZELAYA) Allergies/Adverse Reactions: codeine Allergy (Severe, Verified 02/13/17 16:04) Tightness in Chest Latex, Natural Rubber Allergy (Intermediate, Verified 02/13/17 16:03) Skin Irritation Home Medications: Hydralazine HCl 50 mg PO BID 01/01/13 [History] Losartan Potassium 50 mg [Cozaar 50 MG] 25 mg PO BID 01/01/13 [History] Metoprolol Tartrate 50 mg [Lopressor 50 MG] 25 mg PO BID 01/01/13 [History ] PANTOPRAZOLE 40 mg Tablet [Protonix 40MG Tablet] 40 mg PO DAILY 01/01/13 [ History] Sertraline HCl 100 mg [Zoloft 100 MG] 100 mg PO HS 01/01/13 [History] Simvastatin 40 mg [Zocor 40 mg] 20 mg PO DINNER 01/01/13 [History] Levothyroxine Sodium 100 Mcg [Synthroid 100 Mcg] 175 mcg PO DAILY 06/07/15 [History] Warfarin Sodium 4 mg PO DAILY 08/21/16 [History] Warfarin Sodium 5 mg [Coumadin 5 MG] 5 mg PO DAILY 02/13/17 [History] - Review of Systems Constitutional: Fatigue, Malaise, Weakness, No Fever, No Chills Eyes: No Symptoms Ears, Nose, & Throat: No Symptoms Respiratory: No Cough, No Dyspnea Cardiac: No Chest Pain Abdominal/Gastrointestinal: No Abdominal Pain, No Nausea, No Vomiting Musculoskeletal: Fall, Injury (bruise left hip), No Back Pain, No Neck Pain Neurological: No Focal Weakness, No Parasthesia All Other Systems: Unable due to condition <EDUARDO ZELAYA - Last Filed: 03/26/17 19:36> - Past Medical History Pertinent Past Medical History: Yes Neurological History: No Pertinent History ENT History: No Pertinent History Cardiac History: Congestive Heart Failure, Coronary Artery Disease, Deep Vein Thrombosis, High Cholesterol, Hypertension, Myocardial Infarction ([place]) Respiratory History: COPD, Pulmonary Embolism Endocrine Medical History: Hypothyroidism Musculoskeletal History: No Pertinent History GI Medical History: No Pertinent History History: No Pertinent History Psycho-Social History: No Pertinent History Male Reproductive Disorders: Prostate Problems Other Medical History: ulcers on lower left leg, radiation tx's for skin cancer on end of nose and ear having biopsy 04/11/13. pt "bled out" after having too much coumadin in his system - Past Surgical History Past Surgical History: Yes Neuro Surgical History: No Pertinent History Cardiac: Cardiac Catheterization, Valve Replacement, Other Respiratory: No Pertinent History Gastrointestinal: Cholecystectomy Genitourinary: No Pertinent History Musculoskeletal: No Pertinent History Male Surgical History: No Pertinent History Other Surgical History: ARTIFICIAL HEART VALVE AND A FILTER IN THE AORTA; partial thyroidectomy (left side) - Social History Smoking Status: Never smoker Exposure to second hand smoke: No Alcohol Use: None Drug Use: none Patient Lives Alone: No Significant Family History: no pertinent family hx <EDUARDO ZELAYA - Last Filed: 03/26/17 19:36> - Physical Exam General Appearance: alert Eye Exam: PERRL/EOMI Ears, Nose, Throat Exam: moist mucous membranes Neck Exam: normal inspection, non-tender, supple Respiratory Exam: crackles/rales (bibasilar rales) Cardiovascular Exam: regular rate/rhythm Gastrointestinal/Abdomen Exam: soft, No tenderness, No distention Male Genitalia Exam: other (hernia) Back Exam: No vertebral tenderness Extremity Exam: other (ecchymosis left hip) Neurologic Exam: alert, cooperative, other (pleasantly confused), No motor deficits Skin Exam: warm, dry SpO2 Interpretation: normal SpO2: 98 Oxygen Delivery: Room Air <EDUARDO ZELAYA - Last Filed: 03/26/17 19:36> - Nursing Vital Signs Nursing Vital Signs: Initial Vital Signs Temperature 97.5 F 03/26/17 18:18 Pulse Rate 80 03/26/17 18:18 Respiratory Rate 20 03/26/17 18:18 Blood Pressure 168/78 03/26/17 18:18 O2 Sat by Pulse Oximetry 98 03/26/17 18:18 Pain Scale Pain Intensity 0 - Course Nursing assessment & vital signs reviewed: Yes <EDUARDO ZELAYA - Last Filed: 03/26/17 19:36> - Course EKG Interpreted by Me: RATE (83 bpm), A-fib, NORMAL AXIS, Other (EKG atrial fibrillation 83 bpm normal axis no acute ST or T wave changes) - Radiology Exams Chest X-ray Interpretation: Other (chest x-ray right effusion, cardiomegaly, calcified aorta, post sternotomy) Left Hip X-ray Interpretation: Interpreted by me (no fractures calcified vessels) - CT Exams Head CT Interpretation: Discussed w/radiologist, Other (head CT: Stable nonacute senile brain compared to July 20, 2014) <DENI TORO - Last Filed: 03/26/17 20:16> Ordered Tests: Active Orders 24 hr Category Date Time Status Clean Catch Urine Specimen Care 03/26/17 18:26 Active EKG-ER Only STAT Care 03/26/17 18:26 Active IV Insertion STAT Care 03/26/17 18:26 Active NPO (ED) STAT Care 03/26/17 18:26 Active CHEST 1 VIEW (PORTABLE) Stat Exams 03/26/17 18:26 Taken HEAD WITHOUT CONTRAST [CT] Stat Exams 03/26/17 18:26 Taken HIP UNI (2V) INCL PEL IF DONE Stat Exams 03/26/17 18:26 Taken Lactic Acid Stat Lab 03/26/17 18:35 Completed PROTIME WITH INR Stat Lab 03/26/17 18:39 Completed UA W/RFX UR CULTURE Stat Lab 03/26/17 18:26 Stop Req Lab/Rad Data: Laboratory Results 03/26/17 03/26/17 Range/Units 18:39 18:35 INR 2.57 (0.8-3.0) Lactic Acid 0.9 (0.4-2.0) <EDUARDO ZELAYA - Last Filed: 03/26/17 19:36> - Progress Progress: improved <DENI TORO - Last Filed: 03/26/17 20:16> - Progress Progress Note: 03/26/17 19:36 Await radiology results. Report to Dr Toro for further care and disposition. (EDUARDO ZELAYA) 03/26/17 20:04 This is a 86-year-old white male with history of congestive heart failure coronary artery disease DVT hypercholesterolemia hypertension, myocardial infarction COPD pulmonary embolism who has a history of ulcers on his lower left leg and radiation treatment for skin cancer removed and of nose and urine the past Patient with recent the confusion at home he is following least recently is had a bruise on his the left hip Patient initially seen by Dr. Zelaya patient had a CBC, chemistry UA obtained by his family doctor this afternoon CBC is white count 7.3 hemoglobin 11.2 hematocrit 35.7 chemistry sodium 140 potassium 4.1 chloride 105 bicarbonate 27.6 BUN 37 creatinine 1.97 glucose 93 urinalysis essentially normal INR is 2.[address] of his head ordered by Dr. Zelaya here in the emergency room stable , nonacute senile brain compared to July 20, 2014 Chest x-ray calcified aorta post sternotomy, right effusion, cardiomegaly X-ray left hip no fractures calcified vessels Currently patient is alert oriented to himself Head is atraumatic normocephalic Eyes PERRLA EOMI fundi are unremarkable Ears TMs are intact bilaterally Nose is clear Throat is clear Neck is supple Lungs are clear Heart irregularly irregular Abdomen soft nontender nondistended positive bowel sounds. Extremities bruising left hip. Neuro alert oriented to person place. Cranial nerves II through XII are intact psychology assistant equal 5 over 5. Difficulty following instructions to do finger to nose. Able to move lower extremities. Impression recent falls. Contusion left hip. Confusion. Plan discuss case with Dr. Sanjiv Cool. 03/26/17 20:11 03/26/17 20:15 Patient's case is discussed with Dr. Cool Will place patient in observation telemetry neuro checks every 4 hours CBC CMP in the morning. Diagnosis confusion. Left hip pain. Recent fall (DENI TORO) <EDUARDO ZELAYA - Last Filed: 03/26/17 19:36> - Departure Time of Disposition: 20:16 Departure Disposition: Observation Critical Care Time: No <DENI TORO - Last Filed: 03/26/17 20:16> - Departure Clinical Impression: Confusion, Left hip pain, History of recent fall Condition: Fair Referrals: JCARLOS SAEED [Primary Care Provider] -
[2017-03-26 18:59] LABS: INR 2.57 (0.8-3.0); PROTIME 28.8 SECONDS (8.83-12.87)
[2017-03-26] MEDS ORDERED: TYLENOL 325 MG PO PRN (21:28)
[2017-03-26] MEDS ORDERED: ZOCOR 20MG PO ONE (23:45)
[2017-03-26] MEDS ORDERED: Apresoline 25 MG TABLET PO ONE (23:45)
[2017-03-26] MEDS ORDERED: Lopressor 25MG Tab PO ONE (23:45)
[2017-03-26] MEDS ORDERED: ZOLOFT 50 MG TABLET PO ONE (23:45)
[2017-03-26] MEDS ORDERED: Cozaar 50 MG PO ONE (23:45)
[2017-03-27 05:53] LABS: BASOPHIL % 0.8 % (0.0-0.4); Eosinophil % 4.2 % (0.00-5.0); Lymphocytes % 21.3 % (24.0-44.0); Mean Cell Volume 93.3 fl (78-100); Mean Platelet Volume 10.6 fl (6-9.5); Monocytes % 13.7 % (0.0-12.0); Platelet Count 145 K/mm3 (150-450); Red Blood Count 3.58 M/mm3 (4.1-5.6); Red Cell Distribution Width 14.4 % (11.5-14.0); White Blood Count 7.1 K/mm3 (4.0-10.5)
[2017-03-27 06:03] LABS: ALBUMIN 3.2 g/dL (3.4-5.0); ANION GAP 11.5 MEQ/L (5-15); BILIRUBIN,TOTAL 0.6 mg/dL (0.2-1.0); Mean Corpuscular Hemoglobin 29.8 pg (26-32); Potassium 4.1 mEq/L (3.5-5.1); Total Protein 6.6 gm/dL (6.4-8.2)
[2017-03-27] MEDS: Sodium Chloride 0.9% 10 ML FLUSH Syringe IV SCH ×3 (07:02→21:35)
--- NOTE | 2017-03-27 08:11 | PCM.HP ---
History of Present Illness - Chief Complaint Chief Complaint: Cellulitis with altered mental status weakness falls Date: 03/27/17 History of Present Illness: is a 86 year old male. today he is irritated at John about freezing some assets and about something with the bank. It is rather hard to follow exactly what it is he is concerned about. He says he is weak but otherwise history is limited by his concern with something to do wit his assets and john. per home health yesterday and report of his yesterday. He has been having increasing weakness and confusion and increased falls. He is doing things and then arguing with his that he didn't. He has had several recent falls with some wounds on the right lower leg that are weeping and warm with multiple abrasions. - Review of Systems Constitutional: Other (unable to obtain secondary to mental status) Medications & Allergies Home Medications: Home Medication List Hydralazine HCl 50 mg PO BID 01/01/13 [History Confirmed 03/26/17] Losartan Potassium 50 mg [Cozaar 50 MG] 25 mg PO BID 01/01/13 [History Confirmed 03/26/17] Metoprolol Tartrate 50 mg [Lopressor 50 MG] 25 mg PO BID 01/01/13 [ History Confirmed 03/26/17] PANTOPRAZOLE 40 mg Tablet [Protonix 40MG Tablet] 40 mg PO DAILY 01/01/13 [ History Confirmed 03/26/17] Sertraline HCl 100 mg [Zoloft 100 MG] 100 mg PO HS 01/01/13 [History Confirmed 03/26/17] Simvastatin 40 mg [Zocor 40 mg] 20 mg PO DINNER 01/01/13 [History Confirmed 07/28] Levothyroxine Sodium 100 Mcg [Synthroid 100 Mcg] 175 mcg PO DAILY 06/07/15 [History Confirmed 03/26/17] Warfarin Sodium 4 mg PO DAILY 08/21/16 [History Confirmed 03/26/17] Warfarin Sodium 5 mg [Coumadin 5 MG] 5 mg PO DAILY 02/13/17 [History Confirmed 03/26/17] Potassium Chloride 8 meq PO BID #60 capsule.er 02/15/17 [Rx Confirmed 03/26/17] Furosemide [Lasix] 20 mg PO DAILY 03/26/17 [History Confirmed 03/26/17] Allergies/Adverse Reactions: Allergies Allergy/AdvReac Type Severity Reaction Status Date / Time codeine Allergy Severe Tightness Verified 03/26/17 21:31 in Chest Latex, Natural Rubber Allergy Intermediate Skin Verified 03/26/17 21:31 Irritation lorazepam [From Ativan] Allergy Verified 03/26/17 21:31 - Past Medical History Past Medical History: Yes Neurological History: No Pertinent History ENT History: Cataracts Cardiac History: Congestive Heart Failure, Coronary Artery Disease, Deep Vein Thrombosis, High Cholesterol, Hypertension, Myocardial Infarction ([place]) Respiratory History: COPD, Pulmonary Embolism Endocrine Medical History: Hypothyroidism Musculoskelatal History: No Pertinent History GI Medical History: No Pertinent History History: No Pertinent History Pyscho-Social History: No Pertinent History Male Reproductive Disorders: Prostate Problems Comment: ulcers on lower left leg, radiation tx's for 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 pt "bled out" June 2012 after having too much coumadin in his system - Past Surgical History Past Surgical History: Yes Neuro Surgical History: No Pertinent History Cardiac History: Cardiac Catheterization, Valve Replacement, Other Respiratory Surgery: No Pertinent History GI Surgical History: Cholecystectomy Genitourinary Surgical Hx: No Pertinent History Musculskeletal Surgical Hx: No Pertinent History Male Surgical History: No Pertinent History Other Surgical History: ARTIFICIAL HEART VALVE AND A FILTER IN THE AORTA; partial thyroidectomy (left side) - Social History Smoking Status: Never smoker Exposure to second hand smoke: No Alcohol: None Drug Use: none Significant Family History: no pertinent family hx - Physical Exam Vital Signs: Vital Signs - 24 hr Temp Pulse Resp BP Pulse Ox 03/27/17 07:43 97.8 F 60 18 188/84 96 03/27/17 04:00 97.6 F 66 24 139/71 96 03/26/17 21:39 98 F 84 24 184/86 94 L 03/26/17 20:40 82 16 171/86 99 03/26/17 19:53 72 18 164/115 98 03/26/17 19:37 86 16 161/84 98 03/26/17 19:36 98 03/26/17 18:18 97.5 F 80 20 168/78 98 General Appearance: no apparent distress, alert Neurologic Exam: alert, cooperative, other (weak voice slow speech at baseline talking in tangential thought he is oriented to place month and year not date. he cannot elaborate on recent events other then to talk about John and his assets.) Eye Exam: PERRL/EOMI, eyes nml inspection Ears, Nose, Throat Exam: normal ENT inspection, TMs normal, pharynx normal, moist mucous membranes Neck Exam: normal inspection, non-tender, supple, full range of motion Respiratory Exam: normal breath sounds, lungs clear, No respiratory distress Cardiovascular Exam: normal peripheral pulses, murmur, irregular Gastrointestinal/Abdomen Exam: soft, normal bowel sounds, No tenderness, No mass Back Exam: normal inspection, normal range of motion, No CVA tenderness, No vertebral tenderness Extremity Exam: normal inspection, normal range of motion, pelvis stable, other (right lower extremities with warmth and open ulcerations draining yellow fluid left with chronic ecchymosis see pictures.) Skin Exam: ecchymosis, No rash Lymphatic Exam: No adenopathy Results - Labs Lab/Micro Results: Lab Results-Last 24 Hours 03/27/17 03/27/17 Range/Units 05:38 05:38 WBC 7.1 (4.0-10.5) K/mm3 RBC 3.58 L (4.1-5.6) M/mm3 Hgb 10.7 L (12.5-18.0) gm/dl Hct 33.4 L (42-50) % MCV 93.3 (78-100) fl MCH 29.8 (26-32) pg MCHC 32.0 (32-36) g/dl RDW 14.4 H (11.5-14.0) % Plt Count 145 L (150-450) K/mm3 MPV 10.6 H (6-9.5) fl Gran % 60.0 (36.0-66.0) % Lymphocytes % 21.3 L (24.0-44.0) % Monocytes % 13.7 H (0.0-12.0) % Eosinophils % 4.2 (0.00-5.0) % Basophils % 0.8 (0.0-0.4) % Basophils # 0.06 (0-0.4) Sodium 141 (136-145) mEq/L Potassium 4.1 (3.5-5.1) mEq/L Chloride 108 H (98-107) mEq/L Carbon Dioxide 26.0 (21-32) mEq/L Anion Gap 11.5 (5-15) MEQ/L BUN 37 H (9-20) mg/dL Creatinine 1.79 H (0.55-1.30) mg/dl Estimated GFR 39 ML/MIN Glucose 90 (70-110) MG/DL Calcium 8.9 (8.5-10.1) mg/dL Total Bilirubin 0.60 (0.2-1.0) mg/dL AST 21 (15-37) U/L ALT 17 (12-78) U/L Alkaline Phosphatase 59 (46-116) U/L Serum Total Protein 6.6 (6.4-8.2) gm/dL Albumin 3.2 L (3.4-5.0) g/dL Assessment/Plan (1) Cellulitis Current Visit: Yes Status: Acute Qualifiers: Laterality: right Assessment & Plan: leg with the altered mental status with confusion and falls and weakness consults pt start unasyn monitor inr closely monitor hydration status closely with his chronic chf he will likely need an ecf stay with his progressive decline to improve his functional abilities. in the last several weeks he has had many falls and has gotten stuck in a pond as well. Code(s): L03.90 - CELLULITIS, UNSPECIFIED (2) Recurrent falls Current Visit: Yes Status: Acute Code(s): R29.6 - REPEATED FALLS (3) CHF (congestive heart failure) Current Visit: Yes Status: Chronic Qualifiers: Congestive heart failure type: combined Congestive heart failure chronicity : chronic Qualified Code(s): I50.42 - Chronic combined systolic (congestive) and diastolic (congestive) heart failure Code(s): I50.9 - HEART FAILURE, UNSPECIFIED (4) Hypertension Current Visit: Yes Status: Chronic Qualifiers: Hypertension type: unspecified secondary hypertension Qualified Code(s): I15.9 - Secondary hypertension, unspecified Code(s): I10 - ESSENTIAL (PRIMARY) HYPERTENSION (5) Chronic atrial fibrillation Current Visit: Yes Status: Chronic Code(s): I48.2 - CHRONIC ATRIAL FIBRILLATION (6) Unsteady gait Current Visit: Yes Status: Acute Code(s): R26.81 - UNSTEADINESS ON FEET (7) CKD (chronic kidney disease) Current Visit: Yes Status: Chronic Code(s): N18.9 - CHRONIC KIDNEY DISEASE, UNSPECIFIED
[2017-03-27] MEDS: Unasyn 3GM / NaCl 100ML 3 GM/100 ML IVPB IV SCH ×3 (08:16→17:21)
--- NOTE | 2017-03-27 08:34 | XRAY ---
Indication: Confusion. Recent fall. Comparison: February 14, 2017. Portable chest again demonstrates cardiomegaly and mild pulmonary edema with interval diminished small bibasilar effusions/atelectasis. No new cardiopulmonary abnormalities.
--- NOTE | 2017-03-27 08:35 | XRAY ---
Indication: Confusion. Recent fall. Multiple contiguous axial images obtained through the head without contrast. Comparison: July 20, 2014. Again age-appropriate global atrophy and moderate periventricular degenerative micro-ischemia bilaterally. No acute intracranial hemorrhage, abnormal extra-axial fluid collection, or mass effect. Fourth ventricle is midline without hydrocephalus. Bony calvarium intact. Visualized paranasal sinuses and mastoid air cells are clear. Impression: Stable nonacute senile brain. CT DI 51.77
--- NOTE | 2017-03-27 08:36 | XRAY ---
Indication: Pain following fall. Comparison: None 2 views of the left hip demonstrates mild osteopenia, tiny superior acetabular spurring, chunky prostate calcifications, and extensive scattered vascular calcifications. No other bony, articular, or soft tissue abnormalities.
[2017-03-27] MEDS ORDERED: NON-FORMULARY ITEM (Hydralazine Hcl [Hydralazine Hcl] 50 MG) PO SCH (10:00)
[2017-03-27] MEDS ORDERED: Apresoline 25 MG TABLET PO SCH (10:00)
[2017-03-27] MEDS ORDERED: NON-FORMULARY ITEM (Potassium Chloride [Potassium Chloride] 8 MEQ) PO SCH (10:00)
[2017-03-27] MEDS: Protonix 40MG Tablet PO SCH (10:39)
[2017-03-27] MEDS: SYNTHROID 100 MCG PO SCH (10:39)
[2017-03-27] MEDS: Cozaar 50 MG PO SCH ×2 (10:39→21:33)
[2017-03-27] MEDS: Klor Con 10 MEQ PO SCH ×2 (10:39→21:34)
[2017-03-27] MEDS: LASIX 20 MG PO SCH (10:39)
[2017-03-27] MEDS: Lopressor 25MG Tab PO SCH ×2 (10:39→21:34)
[2017-03-27] MEDS: SYNTHROID 75 MCG PO SCH (10:40)
[2017-03-27] MEDS ORDERED: Apresoline 25 MG TABLET PO ONE (12:10)
[2017-03-27] MEDS: Apresoline 25 MG TABLET PO SCH ×2 (16:23→21:35)
[2017-03-27] MEDS ORDERED: NON-FORMULARY ITEM (Simvastatin 40 Mg [Zocor 40 Mg] 20 MG) PO SCH (17:00)
[2017-03-27] MEDS: ZOCOR 20MG PO SCH (17:21)
[2017-03-27] MEDS: Coumadin 2 MG PO SCH (17:21)
[2017-03-27] MEDS: ZOLOFT 50 MG TABLET PO SCH (21:34)
[2017-03-27] MEDS ORDERED: NON-FORMULARY ITEM (Sertraline Hcl 100 Mg [Zoloft 100 Mg] 100 MG) PO SCH (22:00)
[2017-03-28] MEDS: Unasyn 3GM / NaCl 100ML 3 GM/100 ML IVPB IV SCH ×5 (01:17→23:38)
[2017-03-28 05:45] LABS: Mean Cell Volume 93.5 fl (78-100); Mean Platelet Volume 10.7 fl (6-9.5); Platelet Count 145 K/mm3 (150-450); Red Blood Count 3.55 M/mm3 (4.1-5.6); Red Cell Distribution Width 14.6 % (11.5-14.0); White Blood Count 7.2 K/mm3 (4.0-10.5)
[2017-03-28 05:49] LABS: Mean Corpuscular Hemoglobin 29.5 pg (26-32)
[2017-03-28 06:02] LABS: Carbon Dioxide 25.7 mEq/L (21-32); INR 2.46 (0.8-3.0); PROTIME 27.6 SECONDS (8.83-12.87); Potassium 4.1 mEq/L (3.5-5.1)
[2017-03-28] MEDS: Sodium Chloride 0.9% 10 ML FLUSH Syringe IV SCH ×3 (06:35→22:24)
--- NOTE | 2017-03-28 08:13 | PCM.NOTE ---
Date and Time: 03/28/17805 Subjective Assessment: right leg improving minimal drainage some mild swelling still very weak working with PT but very weak tired this am but otherwise reports things are ok was only able to tolerate up in the chair for 3 hours. Objective Exam Neurologic Exam: alert, oriented x 3, cooperative Skin Exam: warm, dry Neck Exam: non-tender, supple Respiratory Exam: diminished breath sounds Cardiovascular Exam: murmur, irregular Gastrointestinal/Abdomen Exam: soft, normal bowel sounds, No tenderness Extremity Exam: other (eccymosis bilateral lower extremities trace edema on the right with serous drainage from the open wounds.) OBJECTIVE DATA Vital Signs: Vital Signs - 24 hr Temp Pulse Resp BP Pulse Ox 03/28/17 07:42 98.3 F 64 18 165/71 95 03/28/17 04:00 97.7 F 72 14 147/62 93 L 03/28/17 00:00 97.8 F 65 16 157/72 97 03/27/17 20:00 97.1 F 87 29 H 129/60 97 03/27/17 16:00 98.5 F 61 20 132/59 94 L 03/27/17 12:00 97.9 F 72 20 198/90 Pain Assessment - Last Documented Pain Intensity 0 Pain Scale Used 0-10 Pain Scale Intake and Output: Intake & Output 03/25/17 03/26/17 03/27/17 03/28/17 11:59 11:59 11:59 11:59 Intake Total 240 1060 Balance 240 1060 Lab Results: Lab Results-Last 24 Hours 03/28/17 03/28/17 03/28/17 Range/Units 05:10 05:10 05:10 WBC 7.2 (4.0-10.5) K/mm3 RBC 3.55 L (4.1-5.6) M/mm3 Hgb 10.5 L (12.5-18.0) gm/dl Hct 33.2 L (42-50) % MCV 93.5 (78-100) fl MCH 29.5 (26-32) pg MCHC 31.6 L (32-36) g/dl RDW 14.6 H (11.5-14.0) % Plt Count 145 L (150-450) K/mm3 MPV 10.7 H (6-9.5) fl INR 2.46 (0.8-3.0) Sodium 141 (136-145) mEq/L Potassium 4.1 (3.5-5.1) mEq/L Chloride 108 H (98-107) mEq/L Carbon Dioxide 25.7 (21-32) mEq/L Anion Gap 11.0 (5-15) MEQ/L BUN 36 H (9-20) mg/dL Creatinine 1.81 H (0.55-1.30) mg/dl Estimated GFR 38 ML/MIN Glucose 103 (70-110) MG/DL Calcium 8.5 (8.5-10.1) mg/dL Multi-Disciplinary Progress Notes: Multi-Disciplinary Progress Notes 03/27/17 21:15 Respiratory Note by Kimberly Gustafson PT ON HIS HOME UNIT CPAP Initialized on 03/27/17 21:15 - END OF NOTE Assessment/Plan (1) Cellulitis Current Visit: Yes Status: Acute Qualifiers: Laterality: right Assessment & Plan: imporving on unasyn legs wrapped continue to work with pt on strength and gait if weakness is not improving quickly may require ecf rehab stay. Code(s): L03.90 - CELLULITIS, UNSPECIFIED (2) Recurrent falls Current Visit: Yes Status: Acute Code(s): R29.6 - REPEATED FALLS (3) CHF (congestive heart failure) Current Visit: Yes Status: Chronic Qualifiers: Congestive heart failure type: combined Congestive heart failure chronicity : chronic Qualified Code(s): I50.42 - Chronic combined systolic (congestive) and diastolic (congestive) heart failure Code(s): I50.9 - HEART FAILURE, UNSPECIFIED (4) Hypertension Current Visit: Yes Status: Chronic Qualifiers: Hypertension type: unspecified secondary hypertension Qualified Code(s): I15.9 - Secondary hypertension, unspecified Code(s): I10 - ESSENTIAL (PRIMARY) HYPERTENSION (5) Chronic atrial fibrillation Current Visit: Yes Status: Chronic Code(s): I48.2 - CHRONIC ATRIAL FIBRILLATION (6) Unsteady gait Current Visit: Yes Status: Acute Code(s): R26.81 - UNSTEADINESS ON FEET (7) CKD (chronic kidney disease) Current Visit: Yes Status: Chronic Code(s): N18.9 - CHRONIC KIDNEY DISEASE, UNSPECIFIED
[2017-03-28] MEDS: Protonix 40MG Tablet PO SCH (08:32)
[2017-03-28] MEDS: SYNTHROID 100 MCG PO SCH (08:32)
[2017-03-28] MEDS: Apresoline 25 MG TABLET PO SCH ×3 (08:32→22:20)
[2017-03-28] MEDS: Klor Con 10 MEQ PO SCH ×2 (08:32→22:21)
[2017-03-28] MEDS: Cozaar 50 MG PO SCH ×2 (08:32→22:18)
[2017-03-28] MEDS: LASIX 20 MG PO SCH (08:32)
[2017-03-28] MEDS: Lopressor 25MG Tab PO SCH ×2 (08:33→22:19)
[2017-03-28] MEDS: SYNTHROID 75 MCG PO SCH (08:33)
[2017-03-28] MEDS: ZOCOR 20MG PO SCH (17:22)
[2017-03-28] MEDS ORDERED: Coumadin 5 MG PO SCH (18:00)
[2017-03-28] MEDS: ZOLOFT 50 MG TABLET PO SCH (22:19)
[2017-03-29] MEDS ORDERED: Apresoline 25 MG TABLET PO ONE (04:31)
[2017-03-29] MEDS: Unasyn 3GM / NaCl 100ML 3 GM/100 ML IVPB IV SCH ×3 (05:52→18:52)
[2017-03-29] MEDS: Sodium Chloride 0.9% 10 ML FLUSH Syringe IV SCH ×3 (05:52→21:20)
[2017-03-29 07:01] LABS: ANION GAP 11.4 MEQ/L (5-15); Carbon Dioxide 25.2 mEq/L (21-32); Potassium 4.1 mEq/L (3.5-5.1)
[2017-03-29 07:11] LABS: INR 2.26 (0.8-3.0); PROTIME 25.3 SECONDS (8.83-12.87)
--- NOTE | 2017-03-29 08:48 | PCM.NOTE ---
Date and Time: 03/29/17 0844 Subjective Assessment: he continues to obsess over his prior battles with Kevin mine he was moving a little better yesterday afternoon with therapy but still requires significant assistance he is continuing to work with therapy Objective Exam General Appearance: no apparent distress, alert Neurologic Exam: alert, oriented x 3, cooperative, depressed mood/affect Skin Exam: normal color, warm, dry Eye Exam: PERRL, EOMI, eyes nml inspection Ears, Nose, Throat Exam: normal ENT inspection, pharynx normal, moist mucous membranes Neck Exam: normal inspection, non-tender, supple, full range of motion Respiratory Exam: normal breath sounds, lungs clear, No respiratory distress Cardiovascular Exam: regular rate/rhythm, normal heart sounds Gastrointestinal/Abdomen Exam: soft, No tenderness, No mass Extremity Exam: normal inspection, normal range of motion Back Exam: normal inspection, normal range of motion, No CVA tenderness, No vertebral tenderness Male Genitalia Exam: deferred Rectal Exam: deferred OBJECTIVE DATA Vital Signs: Vital Signs - 24 hr Temp Pulse Resp BP Pulse Ox 03/29/17 08:00 98 F 83 20 171/75 94 L 03/29/17 04:00 98 F 75 20 187/81 94 L 03/29/17 00:00 98.6 F 78 18 178/83 93 L 03/28/17 20:00 98.4 F 84 22 167/82 95 03/28/17 16:00 98.1 F 70 16 135/71 96 03/28/17 11:13 98.4 F 66 16 129/62 95 Pain Assessment - Last Documented Pain Intensity 0 Pain Scale Used 0-10 Pain Scale Intake and Output: Intake & Output 03/26/17 03/27/17 03/28/17 03/29/17 11:59 11:59 11:59 11:59 Intake Total 240 1060 1192 Balance 240 1060 1192 Lab Results: Lab Results-Last 24 Hours 03/29/17 03/29/17 Range/Units 05:25 05:25 INR 2.26 (0.8-3.0) Sodium 143 (136-145) mEq/L Potassium 4.1 (3.5-5.1) mEq/L Chloride 110 H (98-107) mEq/L Carbon Dioxide 25.2 (21-32) mEq/L Anion Gap 11.4 (5-15) MEQ/L BUN 32 H (9-20) mg/dL Creatinine 1.74 H (0.55-1.30) mg/dl Estimated GFR 40 ML/MIN Glucose 93 (70-110) MG/DL Calcium 8.6 (8.5-10.1) mg/dL TSH 3rd Generation 1.551 (0.358-3.740) mIU/L Multi-Disciplinary Progress Notes: Multi-Disciplinary Progress Notes 03/28/17 16:09 Physical Therapy Note by Sofia Chaves PATIENT WAS ABLE TO TRANSFER SIT TO STAND; WALK APPROX 10-12 STEPS FORWARD AND RETRO WITH ROLLER WALKER AND ARM HELD ASSIST +2; TRANSFER STAND TO SIT; VERBAL CUEING FOR BEST EXECUTION. AA LE EXERCISE IN SITTING. IMPROVED PERFORMANCE FROM THIS A.M. STAFF REPORTED DIFFICULT MAX ASSIST +2 FOR PIVOT TRANSFER BED TO CHAIR. WILL CONTINUE TO INCREASE FUNCTIONAL ACTIVITY. Initialized on 03/28/17 16:09 - END OF NOTE 03/28/17 13:50 Case Management Note by Yasmin Cazares PAPERS DONE AND WEB APPROVED, NO LEVEL II TRIGGERED. PAPERS ON FRONT OF CHART. Initialized on 03/28/17 13:50 - END OF NOTE 03/28/17 11:35 Respiratory Note by Shari Mackey HOME CPAP AT BEDSIDE Initialized on 03/28/17 11:35 - END OF NOTE 03/28/17 11:05 (created 03/28/17 14:42) Case Management Note by Maria Isabel Osei CALL TO [facility] TO REPORT REFERRAL, SPOKE WITH [facility]. [facility] REPORTS THAT THEY WILL EVAL TOMORROW FOR POSSIBLE REHAB STAY. Initialized on 03/28/17 14:42 - END OF NOTE 03/28/17 10:35 (created 03/28/17 14:41) Case Management Note by Maria Isabel Osei SPOKE WITH [facility] TO REPORT THAT PT WAS ADMITTED. Initialized on 03/28/17 14:41 - END OF NOTE Assessment/Plan (1) Cellulitis Current Visit: Yes Status: Acute Qualifiers: Laterality: right Assessment & Plan: he continues with the delirium and concern by his daughter his depression has been worsening he is working better with therapy now he will need further rehab therapy at discharge bp increased hydralazine increased will increase metroprolol add a little imdur his zoloft was increased as well for tonight. Code(s): L03.90 - CELLULITIS, UNSPECIFIED (2) Recurrent falls Current Visit: Yes Status: Acute Code(s): R29.6 - REPEATED FALLS (3) CHF (congestive heart failure) Current Visit: Yes Status: Chronic Qualifiers: Congestive heart failure type: combined Congestive heart failure chronicity : chronic Qualified Code(s): I50.42 - Chronic combined systolic (congestive) and diastolic (congestive) heart failure Code(s): I50.9 - HEART FAILURE, UNSPECIFIED (4) Hypertension Current Visit: Yes Status: Chronic Qualifiers: Hypertension type: unspecified secondary hypertension Qualified Code(s): I15.9 - Secondary hypertension, unspecified Code(s): I10 - ESSENTIAL (PRIMARY) HYPERTENSION (5) Chronic atrial fibrillation Current Visit: Yes Status: Chronic Code(s): I48.2 - CHRONIC ATRIAL FIBRILLATION (6) Unsteady gait Current Visit: Yes Status: Acute Code(s): R26.81 - UNSTEADINESS ON FEET (7) CKD (chronic kidney disease) Current Visit: Yes Status: Chronic Code(s): N18.9 - CHRONIC KIDNEY DISEASE, UNSPECIFIED
[2017-03-29] MEDS: Lopressor 50 MG PO SCH ×2 (09:59→21:20)
[2017-03-29] MEDS: Protonix 40MG Tablet PO SCH (09:59)
[2017-03-29] MEDS: Cozaar 50 MG PO SCH ×2 (10:00→21:19)
[2017-03-29] MEDS: SYNTHROID 100 MCG PO SCH (10:00)
[2017-03-29] MEDS: SYNTHROID 75 MCG PO SCH (10:00)
[2017-03-29] MEDS: Imdur 30 MG PO SCH (10:00)
[2017-03-29] MEDS: LASIX 20 MG PO SCH (10:00)
[2017-03-29] MEDS: Klor Con 10 MEQ PO SCH ×2 (10:00→21:19)
[2017-03-29] MEDS: Apresoline 25 MG TABLET PO SCH ×3 (10:01→21:19)
[2017-03-29] MEDS: Coumadin 2 MG PO SCH (18:52)
[2017-03-29] MEDS: ZOCOR 20MG PO SCH (18:52)
[2017-03-29] MEDS ORDERED: ZOLOFT 50 MG TABLET PO SCH (22:00)
[2017-03-30] MEDS: Unasyn 3GM / NaCl 100ML 3 GM/100 ML IVPB IV SCH ×2 (01:07→05:49)
[2017-03-30 05:30] LABS: ANION GAP 9.7 MEQ/L (5-15); Carbon Dioxide 25.2 mEq/L (21-32); Potassium 4.2 mEq/L (3.5-5.1)
[2017-03-30 05:43] LABS: INR 2.52 (0.8-3.0); PROTIME 28.3 SECONDS (8.83-12.87)
[2017-03-30] MEDS: Sodium Chloride 0.9% 10 ML FLUSH Syringe IV SCH (05:51)
[2017-03-30 07:59] VITALS: BP 148/75; PULSE 80; O2SAT 92
--- NOTE | 2017-03-30 08:23 | PCM.DS ---
Discharge Summary Date of Admission: 03/27/17 08:04 Date of Discharge: 03/30/17 Admitting Physician: JCARLOS SAEED Primary Care Provider: JCARLOS SAEED Allergies Allergies codeine Allergy (Severe, Verified 03/26/17 21:31) Tightness in Chest Latex, Natural Rubber Allergy (Intermediate, Verified 03/26/17 21:31) Skin Irritation lorazepam [From Ativan] Allergy (Verified 03/26/17 21:31) Hospital Summary - Hospital Course Hospital Course: he has had progressively increasing weakness and falling at home and then became more confused and having delusions as well about old episodes with the mine of having disputes over money and the bank. He kept repeating. He was evaluated in ED and found to have right lower extremity wounds that appear to have been infected again but early this time. He was treated with unasyn. Therapy was working with him. He suffered delirium with delusional behavior while inpatient and was not sleeping. His bp was high his beds were increased on his metoprolol and his hydralazine. His leg improved but he remained with the confusion and delusions that would come and go. HIs daughter was concerned his severe depression had returned and attempt to increase his zoloft from 100 to 200 mg was made and the night that was done he was much worse. He was fidgeting his legs and arms unable to sleep repeating himself and had difficulty time calming down. His had to stay with him. He continued to have that status at time of discharge and hope is to be able to get to rehab where he can get some regular rest. IF the delusions persist we did discuss augmenting the zoloft which I backed back down to his chronic dose of 100 mg daily with a dose of zyprexa she was in agreement with the potential side effects with this. He will need help with his gait training and strength from the recurrent falls and worsening weakness. - Vitals & Intake/Output Vital Signs: Vital Signs Temperature 98.0 F 03/30/17 07:59 Pulse Rate 80 03/30/17 07:59 Respiratory Rate 20 03/30/17 07:59 Blood Pressure 148/75 03/30/17 07:59 O2 Sat by Pulse Oximetry 92 L 03/30/17 07:59 Intake & Output: Intake & Output 03/27/17 03/28/17 03/29/1717 11:59 11:59 11:59 11:59 Intake Total 240 1060 1192 400 Balance 240 1060 1192 400 - Lab Result Diagrams: 03/28/17 05:10 03/30/17 05:11 Lab Results-Last 24 Hrs: Lab Results-Last 24 Hours 03/30/17 03/30/17 03/30/17 Range/Units 05:11 05:11 05:11 INR 2.52 (0.8-3.0) Sodium 141 (136-145) mEq/L Potassium 4.2 (3.5-5.1) mEq/L Chloride 110 H (98-107) mEq/L Carbon Dioxide 25.2 (21-32) mEq/L Anion Gap 9.7 (5-15) MEQ/L BUN 35 H (9-20) mg/dL Creatinine 1.90 H (0.55-1.30) mg/dl Estimated GFR 36 ML/MIN Glucose 96 (70-110) MG/DL Calcium 8.4 L (8.5-10.1) mg/dL Ammonia 21 (11-32) MMOL/l - Procedures and Test Procedures and Tests throughout Hospitalization: Therapy Orders & Screens 03/27/17 08:12 PT Eval & Treat ( Order) ROUTINE Evaluate: Yes Treat: Yes Reason for Eval:: weakness falls cellulitis Diagnosis: Cellulitis with altered mental status weakness falls Discharge Exam General Appearance: no apparent distress Neurologic Exam: alert, other (slow speech he answers question by redirecting the conversation about accounts at the mine), No oriented x 3, No sensory deficit Skin Exam: warm, dry, ecchymosis (bilateral lower extremities with wounds on right healing and no drainage or warmth today) Eye Exam: pale conjunctivae, No scleral icterus Ears, Nose, Throat Exam: moist mucous membranes Neck Exam: non-tender, supple Respiratory Exam: normal breath sounds, lungs clear Cardiovascular Exam: murmur Gastrointestinal/Abdomen Exam: soft, normal bowel sounds, No tenderness Final Diagnosis/Problem List - Final Discharge Diagnosis/Problem (1) Cellulitis Status: Resolved (2) Recurrent falls Status: Acute (3) CHF (congestive heart failure) Status: Chronic (4) Hypertension Status: Chronic (5) Chronic atrial fibrillation Status: Chronic (6) Unsteady gait Status: Acute (7) CKD (chronic kidney disease) Status: Chronic (8) Depression Status: Acute (9) Delusion Status: Acute (10) Delirium Status: Acute - Discharge Disposition: Skilled Care @ [facility] Condition: Fair Prescriptions: New Isosorbide Mononitrate 30 mg [Imdur 30 MG] 30 mg PO DAILY tab Furosemide 20 mg [Lasix 20 mg] 20 mg PO DAILY tablet Metoprolol Tartrate 50 mg [Lopressor 50 MG] 50 mg PO BID tablet Acetaminophen 325 mg [Tylenol 325 mg] 650 mg PO Q4H PRN PRN tablet PRN Reason: Pain And/Or Fever Sertraline HCl 50 mg [Zoloft 50 mg Tablet] 100 mg PO HS tab Continue Losartan Potassium 50 mg [Cozaar 50 MG] 25 mg PO BID PANTOPRAZOLE 40 mg Tablet [Protonix 40MG Tablet] 40 mg PO DAILY Simvastatin 40 mg [Zocor 40 mg] 20 mg PO DINNER Levothyroxine Sodium 100 Mcg [Synthroid 100 Mcg] 175 mcg PO DAILY Warfarin Sodium 4 mg PO DAILY Warfarin Sodium 5 mg [Coumadin 5 MG] 5 mg PO DAILY Potassium Chloride 8 meq PO BID #60 capsule.er Changed Hydralazine HCl 100 mg PO TID #90 tablet Discontinued Metoprolol Tartrate 50 mg [Lopressor 50 MG] 25 mg PO BID Sertraline HCl 100 mg [Zoloft 100 MG] 100 mg PO HS Furosemide [Lasix] 20 mg PO DAILY Additional Instructions: [facility] ORDERS: INR, CBC, BMP in 1 week PT/OT EVAL AND TREAT HEART HEALTHY DIET SEE ATTACHED MED LIST FOR CURRENT MED ORDERS DR. SAEED TO SEE AT ALF. Follow up with: JCARLOS SAEED [Primary Care Provider] - Forms: Ambulance Transport Record, Transfer Record Detention
[2017-03-30] MEDS: LASIX 20 MG PO SCH (09:03)
[2017-03-30] MEDS: Protonix 40MG Tablet PO SCH (09:03)
[2017-03-30] MEDS: SYNTHROID 100 MCG PO SCH (09:03)
[2017-03-30] MEDS: Lopressor 50 MG PO SCH (09:03)
[2017-03-30] MEDS: SYNTHROID 75 MCG PO SCH (09:03)
[2017-03-30] MEDS: Klor Con 10 MEQ PO SCH (09:03)
[2017-03-30] MEDS: Cozaar 50 MG PO SCH (09:03)
[2017-03-30] MEDS: Apresoline 25 MG TABLET PO SCH (09:04)
[2017-03-30] MEDS: Imdur 30 MG PO SCH (09:04)
== END 2017-03-30 11:00 | DRG 603 ==
LOC: ED 18:04 → MED SURG 20:59 → OBSVTOIN 03-27 08:04
PROVIDERS: ADMIT Family Medicine; ATTEND Family Medicine
DX: L03.116 Cellulitis of left lower limb (principal); I50.42 Chronic combined systolic (congestive) and diastolic (congestive) heart failure; F32.0 Major depressive disorder, single episode, mild; I50.84 End stage heart failure; R29.6 Repeated falls; I15.9 Secondary hypertension, unspecified; I48.2 Chronic atrial fibrillation; R26.81 Unsteadiness on feet; I12.9 Hypertensive chronic kidney disease with stage 1 through stage 4 chronic kidney disease, or unspecified chronic kidney disease; N18.9 Chronic kidney disease, unspecified; F22 Delusional disorders; R41.0 Disorientation, unspecified; I25.10 Atherosclerotic heart disease of native coronary artery without angina pectoris; Z79.01 Long term (current) use of anticoagulants; Z79.899 Other long term (current) drug therapy; Z86.711 Personal history of pulmonary embolism; Z86.718 Personal history of other venous thrombosis and embolism; I25.2 Old myocardial infarction; Z85.828 Personal history of other malignant neoplasm of skin; Z95.4 Presence of other heart-valve replacement
CPT/HCPCS: 36000; 36415; 70450; 71010; 73502; 80048; 80053; 81002; 82140; 83605; 84443; 85025; 85027; 85610; 87086; 93005; 93268; 99285; G0378; J0295; 97110-GP; A9270-GY